=== PATIENT | male | born 1960 | race Caucasian/White ===

== ENCOUNTER 2017-06-12 00:20 | Inpatient (IN) | payer MEDICAID ==
[~2017-06-12] VITALS: Ht 182.9 cm; Wt 88.0 kg
[2017-06-12] VITALS (9 sets, daily range): BP systolic 144–195; BP diastolic 85–102
[~2017-06-12 00:20] MED LIST: ASPIRIN 325MG325 MG PO; BENTYL10 M1 PO; CARVEDILOL 25MG25 MG PO; CIPRO 500MG TA500 MG PO; DIFLUCAN200 MG PO; ETODOLAC400 MG PO; FLAGYL 500MG.500 MG PO; FLAGYL500 M1 PO; FUROSEMIDE40 MG PO; GABAPENTIN300 MG PO; GLIMEPIRIDE 2MG2 MG PO; IMODIUM MULTI-S1 TAB PO; LISINOPRIL 20MG20 MG PO; NICOTINE T21 MG/24 H TD; NITROGLYCERIN0.4 MG SL; NOMEDS; NOMEDS *; NOMEDS XX; NORCO 325 MG-51 TAB PO; NORVASC 5MG. TAB5 MG PO; PERCOCET 325 MG1 TA3 PO; PHENERGAN 25MG.25 M1 PO; PREDNISONE 20MG20 MG PO; PREDNISONE20 MG PO; PRILOSEC20 MG PO; SPIRONOLACTONE25 MG NG; ZESTRIL20 MG NG; ZOFRAN 8MG TABLE8 MG PO; ZOFRAN ODT4 MG PO
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
[2017-06-12 02:18] LABS: HEMOGLOBIN 17.5 g/dL (14.1-18.0); LYMPH % 6.1 % (10-50)
[2017-06-12 03:42] LABS: NEUTROPHILS 93 % (42-76)
--- NOTE | 2017-06-12 07:29 | PHARMACY CLINIC NOTE ---
Patient Demographics Patient Demographics Admission date: 06/12/17 Date: 06/12/17 Time: 0728 Allergies Coded Allergies: codeine (Severe, [id number]/THROAT 09/03/16) Penicillins (Mild, 01/08/16) acetaminophen (From DARVOCET-N 100) (Mild, 01/06/16) morphine (Mild, 01/06/16) propoxyphene (From DARVOCET-N 100) (Mild, 01/06/16) HEIGHT- FT: 6 IN: 0.00 K.026 VTE General Information Labs: Laboratory Tests 06/12 0215 Hematology Hgb (14.1 - 18.0 g/dL) 17.5 Hct (42.0 - 52.0 %) 50.6 Plt Count (142 - 424 K/mm3) 249 Disclaimer The following section includes nursing documentation that has been pulled in for pharmacy review. Patient's VTE score: 2 Patient's VTE Risk: VERY LOW RISK Clinical trial participant? No VTE prophylaxis NQF [id number] VTE prophylaxis ordered? Yes Type of prophylaxis/treatment: DIAMOND at 0729
--- NOTE | 2017-06-12 07:29 | PHARMACY CLINIC NOTE ---
Patient Demographics Patient Demographics Admission date: 06/12/17 Date: 06/12/17 Time: 0728 Allergies Coded Allergies: codeine (Severe, [id number]/THROAT 09/03/16) Penicillins (Mild, 01/08/16) acetaminophen (From DARVOCET-N 100) (Mild, 01/06/16) morphine (Mild, 01/06/16) propoxyphene (From DARVOCET-N 100) (Mild, 01/06/16) HEIGHT- FT: 6 IN: 0.00 K.026 VTE General Information Labs: Laboratory Tests 06/12 0215 Hematology Hgb (14.1 - 18.0 g/dL) 17.5 Hct (42.0 - 52.0 %) 50.6 Plt Count (142 - 424 K/mm3) 249 Disclaimer The following section includes nursing documentation that has been pulled in for pharmacy review. Patient's VTE score: 2 Patient's VTE Risk: VERY LOW RISK Clinical trial participant? No VTE prophylaxis NQF [id number] VTE prophylaxis ordered? Yes Type of prophylaxis/treatment: DIAMOND at 0729
--- NOTE | 2017-06-12 08:14 | RADIOLOGY REPORT PS360 ---
CT ABD PELVIS W/O CONTRAST CLINICAL INDICATION: Nausea and vomiting with severe abdominal pain SEVERE ABD PAIN ORDERING PHYSICIAN: José Miguel Nevarez MD PATIENT AGE: 56 years COMPARISON: 09/20/2016 TECHNIQUE: Axial images obtained with sagittal and coronal reformats. PROCEDURE: Oral Contrast: None IV Contrast: None . FINDINGS: Chronic changes are present in the left lung base. There is mild thickening of the distal esophagus. Nonspecific. The liver, spleen, adrenal glands, and pancreas are unremarkable. No radio opaque gallstones. There are punctate nonobstructing bilateral renal calculi measuring up to 3 mm. No ureteral calculi or hydronephrosis. Bowel gas pattern is abnormal. There are fluid-filled loops of small bowel slightly distended. There is also fluid-filled cecum. Mild small bowel thickening noted. No evidence of appendicitis or diverticulitis. No free air. No transition point identified. No acute bony anomalies. IMPRESSION: 1. Mildly distended fluid-filled loops of small and large bowel with some mild bowel wall thickening suggesting enterocolitis/ileus. These findings are similar when compared to 09/20/2016. 2. Nonobstructing bilateral renal calculi.
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
[2017-06-13 03:57] VITALS: BP 158/84
[2017-06-13 07:28] LABS: LYMPH # 1.8 K/mm3 (0.7-4.5); LYMPH % 15.9 % (10-50)
[2017-06-13 08:00] VITALS: BP 164/85
[2017-06-13 08:05] LABS: HEMOGLOBIN 14.3 g/dL (14.1-18.0)
--- NOTE | 2017-06-13 08:38 | ACUTE CARE PROGRESS NOTE (QUA) ---
Progress Notes Subjective Date 06/13/17 Time 0745 Note Pt resting quietly in bed, reports he is feeling a little better. He is tolerating clear liquids without nausea or vomiting. He continues with some mild abdominal cramping and soreness. He is voiding normally and had one liquid BM overnight. Objective Findings Vital Signs Date Time Temp Pulse Resp B/P Pulse O2 O2 Flow FiO2 Ox Delivery Rate 06/13 0804 98.3 54 16 158/84 97 06/13 0357 98.3 54 16 158/84 97 ROOM AIR 06/12 2103 99.6 61 18 173/99 98 06/12 2026 18 06/12 1958 99.6 61 18 173/99 98 ROOM AIR 06/12 1554 97.9 67 16 144/85 99 ROOM AIR 06/12 1316 18 06/12 0921 98.9 58 18 158/98 100 Last VS-Temp:98.3 B/P:158/84 Pulse:54 Resp:16 SaO2:97 ROOM AIR Last weight lbs:194 oz:1 K.026 Method:Bed Scales Exam General appearance: alert, awake, no acute distress Cardiovascular: regular rate & rhythm, normal peripheral pulses Respiratory: good air movement with bibasilar wheeze ABD: non-distended, no rebound, soft, no guarding, no organomegaly, no palpable mass, bowel sounds present, mildly and diffusely ttp, moreso along midline Extremities: moves all, no peripheral edema, no calf tenderness, bilateral DIAMOND hose in place Neuro: alert, oriented, speech clear, no focal deficit Reviewed: medications, vital signs, lab results, nursing notes Assessment/Plan Problem List 1. Enterocolitis Status: Acute 2. Generalized abdominal pain Status: Acute 3. Nausea and vomiting Status: Acute 4. Hypokalemia Status: Acute 5. Dehydration Status: Acute 6. Hypertension Status: Chronic 7. Tobacco abuse Status: Chronic 8. COPD (chronic obstructive pulmonary disease) Status: Chronic Patient condition Improving Plan: continue current care This inpt stay is expected to cross 2 MNs from start of care Yes (ADILSON JEFFREY APRN) Assessment/Plan Problem List 1. Enterocolitis Status: Acute 2. Generalized abdominal pain Status: Acute 3. Nausea and vomiting Status: Acute 4. Hypokalemia Status: Acute 5. Dehydration Status: Acute 6. Hypertension Status: Chronic 7. Tobacco abuse Status: Chronic 8. COPD (chronic obstructive pulmonary disease) Status: Chronic Comments: Patient seen and agree with above note, advance to a full liquid diet. (José Miguel Nevarez MD) at 0837 at 0861
[2017-06-13 16:00] VITALS: BP 181/95
[2017-06-13 19:46] VITALS: BP 169/88
[2017-06-14 04:33] VITALS: BP 153/82
[2017-06-14 07:28] VITALS: BP 159/87
--- NOTE | 2017-06-14 08:31 | ACUTE CARE PROGRESS NOTE (QUA) ---
Progress Notes Subjective Date 06/14/17 Time 0829 Note Patient is feeling better, needing less pain medication, tolerating full liquid diet. Objective Findings Vital Signs Date Time Temp Pulse Resp B/P Pulse O2 O2 Flow FiO2 Ox Delivery Rate 06/14 0821 98.9 56 18 159/87 99 06/14 0728 98.9 56 18 159/87 99 ROOM AIR 06/14 0443 18 06/14 0433 98.5 53 18 153/82 100 ROOM AIR 06/13 1946 98.5 52 18 169/88 99 06/13 1946 98.5 52 18 169/88 99 ROOM AIR 06/13 1725 20 06/13 1600 98.5 50 20 181/95 98 ROOM AIR 06/13 1049 16 I&O Past 24 Hrs-ending at 0700 06/14 0700 Intake Total 4776 Output Total 1190 Balance 3586 Last VS-Temp:98.9 B/P:159/87 Pulse:56 Resp:18 SaO2:99 ROOM AIR Last weight lbs:194 oz:1 K.026 Method:Bed Scales Exam General appearance: alert, awake, no acute distress Cardiovascular: regular rate & rhythm Respiratory: clear to auscultation ABD: normal bowel sounds, soft, tenderness (minimal periumbilical) Assessment/Plan Problem List 1. Enterocolitis Status: Acute 2. Generalized abdominal pain Status: Acute 3. Nausea and vomiting Status: Acute 4. Hypokalemia Status: Acute 5. Dehydration Status: Acute 6. Hypertension Status: Chronic 7. Tobacco abuse Status: Chronic 8. COPD (chronic obstructive pulmonary disease) Status: Chronic This inpt stay is expected to cross 2 MNs from start of care Yes Comments: Advance to bland diet, saline lock IVF. at 0830
--- NOTE | 2017-06-14 14:09 | ACUTE CARE PROGRESS NOTE (QUA) ---
Progress Notes Subjective Date 06/14/17 Time 1407 Note Patient has done well with regular diet, pain has decreased, he wants to go home. Assessment/Plan Problem List 1. Enterocolitis Status: Acute 2. Generalized abdominal pain Status: Acute 3. Nausea and vomiting Status: Acute 4. Hypokalemia Status: Acute 5. Dehydration Status: Acute 6. Hypertension Status: Chronic 7. Tobacco abuse Status: Chronic 8. COPD (chronic obstructive pulmonary disease) Status: Chronic This inpt stay is expected to cross 2 MNs from start of care Yes Comments: Discharge home today, he will call for appt. with his assigned primary MD. at 1402
[2017-06-14] MEDS ORDERED: LISINOPRIL 20MG20 MG PO (14:10)
[2017-06-14] MEDS ORDERED: NORVASC 5MG. TAB5 MG PO (14:10)
[2017-06-14] MEDS ORDERED: METRONIDAZOLE500 M2 PO (14:11)
[2017-06-14] MEDS ORDERED: ZOFRAN 8MG TABLE8 MG PO (14:11)
[2017-06-14 14:40] VITALS: BP 159/87
--- NOTE | 2017-06-16 17:21 | DISCHARGE SUMMARY STANDARD ---
Discharge Summary (FCA2) Date of admission: 06/12/17 Date of discharge: 06/14/17 Problem List: 1. Enterocolitis 2. Generalized abdominal pain 3. Nausea and vomiting 4. Hypokalemia 5. Dehydration 6. Hypertension 7. Tobacco abuse 8. COPD (chronic obstructive pulmonary disease) History of present illness: Mr. Medina is a 56yo WM with a history of HTN, COPD, and recurring partial bowel obstructions who presented to the [facility] ED for evaluation after two days of abdominal pain and vomiting at home. He denied any loose stools or blood in his stool. He did have subjective fever with aches and chills, as well as decreased appetite. Upon arrival, his WBC was elevated, as well as his BUN and Creatinine. CT Abdomen/Pelvis showed enterocolitis. The case was discussed with Dr. Nevarez and he was admitted for IVF and antibiotics. This morning, he continues with lower abdominal pain and vomiting, which are somewhat controlled by prn dilaudid and zofran. He is voiding per urinal. He denies BM. Exam on admission: 1ST Vital Signs Result Date Time Pulse Ox 98 06/12 0023 B/P 180/90 06/12 0023 Temp 97.9 06/12 0023 Pulse 72 06/12 0023 Resp 24 06/12 0023 O2 Delivery ROOM AIR 06/12 0448 Exam: General appearance: no acute distress, arouses to voice Eyes: anicteric, PERRLA ENT: mucous membranes moist, pharynx normal, nares patent Neck: non-tender, supple, no thyromegaly or LAD Cardiovascular: regular rate & rhythm, normal peripheral pulses Respiratory: good air movement with fine crackles left base ABD: non-distended, soft, bowel sounds present, ttp throughout Extremities: moves all, no peripheral edema, warm, no calf tenderness Musculoskeletal: equal muscle strength, sensation intact Skin: dry, intact, warm 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 The AM after admission he continued with lower abdominal pain and vomiting, which were somewhat controlled by prn dilaudid and zofran. He was voiding per urinal. Pt did begin to feel better, was able to rest, and began to tolerated clear liquids. Labs also improved. By 06/14/17 patient was tolerating a regular diet and had minimal abdominal discomfort. He was discharged on this day Laboratory data this visit: 06/12/17 0703: Lactic Acid 2.4 H 06/12/17 021: Lactic Acid 2.6 H 06/12/17 0215: Creatine Kinase 74, CK-MB (CK-2) Rel Index 0.8, CK and CKMB Interp 0.6, Troponin I < 0.02, ESR 0 06/12/17 021: Sodium 140, Potassium 3.2 L, Chloride 102, Carbon Dioxide 25, BUN 19 H, Creatinine 1.5 H, Estimated Creat Clear 70, Estimated GFR (MDRD) 48, Glucose 168 H, Calcium 9.7, Total Bilirubin 1.4 H, AST 16, ALT 29, Alkaline Phosphatase 102, Total Protein 8.5 H, Albumin 4.8, Globulin 3.7 H, Albumin/ Globulin Ratio 1.3, Amylase 32, Lipase 121, WBC 15.7 H, RBC 5.69, Hgb 17.5, Hct 50.6, MCV 88.9, RDW 13.3, Plt Count 249, MPV 7.5, Gran % 89.8 H, Gran # 14.1 H , Total Counted 100, Lymphocytes % 6.1 L, Monocytes % 3.4, Eosinophils % 0.6, Basophils % 0.2, Neutrophils 93 H, Lymphocytes (Manual) 7 L, Lymphocytes # 1.0 , Monocytes # 0.5, Eosinophils # 0.1, Basophils # 0.0, Platelet Estimate NORMAL, Anisocytosis 1+, PUBS MCHC 34.6, MCH 30.7 Imagin06/12/17 CT of abdomen/pelvis IMPRESSION: 1. Mildly distended fluid-filled loops of small and large bowel with some mild bowel wall thickening suggesting enterocolitis/ileus. These findings are similar when compared to 09/20/2016. 2. Nonobstructing bilateral renal calculi. Discharge medications: Continue taking these medications: LISINOPRIL (Lisinopril) 20 MG TAB 20 MILLIGRAM ORAL DAILY Qty = 30 This prescription has been renewed Amlodipine Besylate (Norvasc) 5 MG TAB 5 MILLIGRAM ORAL DAILY Qty = 30 This prescription has been renewed Start taking the following new medications: Metronidazole (Metronidazole) 500 MG TABLET 500 MILLIGRAM ORAL THREE TIMES A DAY Qty = 21 No Refills Ondansetron Hcl (Zofran 8MG Tab) 8 MG TABLET 8 MILLIGRAM ORAL EVERY 8 HOURS NEEDED as needed for N/V Qty = 20 No Refills Disposition: Patient was dischared to home in stable and satisfactory condition. Meds as per reconciliation sheet. Follow up: 2 WEEKS with PCP Activity: Cont Current activity Diet: Continue same diet Discharge to: HOME Agency needed? N at 1724
--- OUTSIDE RECORDS SUMMARY | 2017-07-08 04:48 | External Medical Summary Rpt ---
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 Name Role Phone CHRISTINA RODGERSSHARIFSHELLI Unavailable Unavailable [facility]LE [facility], Unavailable [facility]available [facility], Unavailable Unavailable [facility] Pau GUTIERREZ MD Unavailable Unavailable [facility], C JANNETTE GUTIERREZ MD [facility] ANJALI JONATHAN, Unavailable Unavailable ANJALI JONATHAN [facility], Unavailable Unavailable [facility], Unavailable Unavailable [facility] [place], [facility] [place] [facility] Unavailable Unavailable [facility], [facility] [place] JOSE RAMON, [place] Unavailable Unavailable JSOE RAMON CHIARA QAMAR, CHIARA Unavailable Unavailable QAMAR ZULETA JOSE RAMON, ZULETA JOSE RAMON Unavailable Unavailable JR MARLY MENDOZA, Unavailable Unavailable JR MARLY MENDOZA [facility] Unavailable Unavailable INC, [facility] Unavailable Unavailable Hospital, [facility] FERNÁNDEZ JOSE RAMON, Unavailable Unavailable FERNÁNDEZ JOSE RAMON FERNÁNDEZ JOSE RAMON, Unavailable Unavailable FERNÁNDEZ JOSE RAMON [facility] Unavailable Unavailable [facility], [facility], Unavailable Unavailable [facility], Unavailable Unavailable [facility], Unavailable Unavailable RENETTA R Anil [facility], Unavailable Unavailable [facility], [facility] SHARPE MASHA, SHARPE MASHA Unavailable Unavailable SHARPE MASHA, SHARPE MASHA Unavailable Unavailable [facility] Unavailable Unavailable [id number] # [id number], [facility] [id number] # [id number] [facility] ALEKSANDR, Unavailable Unavailable [facility] ALEKSANDR [facility] ALEKS[facility], Unavailable Unavailable [facility] ALEKSANDR SCIFRES ANG, SCIFRES Unavailable Unavailable ANG SCIFRES ANG, SCIFRES Unavailable Unavailable ANG SOTINGEANU, Unavailable Unavailable [facility], [facility] TROOST NEI, TROOST Unavailable Unavailable NEI [facility] # Unavailable Unavailable [id number], [facility] # [id number] Purpose Continuity of Care Document - 05-29-2011 through 2016 Problems Code Diagnosis DOS Provider Status I10 ESSENTIAL 09-20-2016 [facility] HYPERTENSIO INC N J449 CHRONIC 09-20-2016 [facility] PULMONARY INC DISEASE UNS K219 GASTRO-ESOP 09-20-2016 [facility] DISEASE INC WITHOUT ESOPHAGITIS K5289 OTH SPEC 09-20-2016 [facility] GASTROENTER ITIS & COLITIS K529 NONINFECTIV 09-20-2016 [facility] GASTROENTER INC ITIS & COLITIS UNS R112 NAUSEA WITH 09-20-2016 [facility] Z720 TOBACCO USE 09-20-2016 [facility] 67708 INTESTINAL 06-06-2015 [facility] DUE CLOSTRIDIUM DIFFICILE 4019 UNSPECIFIED 06-06-2015 [facility] ESSENTIAL [facility] HYPERTENSIO N 66259 OTHER 06-06-2015 [facility] TENOSYNOVIT [facility] IS OF HAND AND WRIST 25178 OTHER 05-31-2015 [place] DISEASES OF MEDICAL LUNG NOT IMAGING ASS ELSEWHERE CLASSIFIED 78442 OTHER 05-31-2015 [place] SPECIFIED MEDICAL DISORDER OF IMAGING ASS INTESTINES 53786 ABDOMINAL 05-31-2015 [place] PAIN, MEDICAL UNSPECIFIED IMAGING ASS SITE 10842 NAUSEA WITH 05-28-2015 [place] VOMITING [facility]ICAL [facility]ING [facility] 7873 FLATULENCE 05-28-2015 [place] ERUCTATION MEDICAL AND GAS IMAGING ASS PAIN V5882 ENCOUNTER 05-28-2015 [place] FITTING&ADJ MEDICAL IMAGING ASS NON-VASCULA R CATHETER NEC 99883 LEUKOCYTOSI 05-27-2015 [facility] S [facility], UNSPECIFIED PLLC 5920 CALCULUS OF 05-27-2015 [facility] [facility] 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 MEDIA 14702 UNSPECIFIED 08-11-2014 [facility] OTITIS PHYS EXTERNA 4139 OTHER AND 08-11-2014 [facility] ANGINA INC PECTORIS V148 PERSONAL 08-11-2014 [facility] HISTORY [facility] ALLERGY OTH INC SPEC MEDICINAL AGTS 7840 HEADACHE 07-11-2014 [facility] 5559 REGIONAL 09-09-2011 [facility] ENTERITIS ALEKSANDR OF UNSPECIFIED SITE 81296 NAUSEA 09-09-2011 [place] [facility]ONE [facility] 88970 ABDOMINAL 09-09-2011 [facility] PAIN, ALEKSANDR GENERALIZED 7934 NONSPECIFIC 09-09-2011 SHARPE MASHA ABN FINDING RAD & OTH EXAM GI TRACT 7936 NONSPEC ABN 09-09-2011 [place] FINDNG RAD MEDICAL & OTH EXAM IMAGING ASS ABDOMINAL AREA 5589 OTH&UNSPEC 07-20-2011 [facility]INFECTIO [facility] US INC GASTROENTER ITIS&COLITI S 02236 OTHER 07-20-2011 [facility] DISORDERS INC OF INTESTINE 5609 UNSPECIFIED 07-19-2011 [place] INTESTINAL [facility]ICAL [facility] OBSTRUCTION 5601 PARALYTIC 07-12-2011 [facility] ILEUS [facility] 19796 DENTAL 06-05-2011 [facility] CARIES JOSE RAMON EXTENDING INTO PULP 5258 OTHER SPEC 06-05-2011 F[facility] DISORDERS JOSE RAMON TEETH&SUPPO RTING STRUCTURES 560.9 Small bowel [facility] D72.829 ELEVATED WHITE BLOOD CELL COUNT, UNSPECIFIED H60.92 UNSPECIFIED OTITIS EXTERNA, LEFT EAR H66.90 OTITIS MEDIA, UNSPECIFIED , UNSPECIFIED EAR K52.9 NONINFECTIV E GASTROENTER ITIS AND COLITIS, UNSPECIFIED R10.9 UNSPECIFIED ABDOMINAL PAIN R11.2 NAUSEA WITH VOMITING, UNSPECIFIED Allergies, Adverse Reactions, Alerts Type Drug Allergy Adverse Reaction to Substance Substance Reaction Severity Penicillin Unknown Unknown Amoxicillin Unknown Unknown Codeine Unknown Unknown Morphine Unknown Unknown Propoxyphene Unknown Unknown Penicillin V Unknown Unknown Acetaminophen Unknown Unknown Hydrocodone Unknown Unknown Medications Na ND Rx Da Fi Fi Am Da Di Ph RX Ph St me C No te ll ll ou ys ag ar # ys at rm s nt no ma ic us Or Da si cy ia de te s n re d LI 68 08 30 30 00 CL Ac SI 18 -0 -0 .0 00 IN ti NO 00 7- - 00 00 IC ve OR 98 20 20 41 IL 10 17 17 54 PH 3 56 AR 20 MA CY MG TA BL ET AM 67 08 09 30 30 00 CL Ac LO 87 -0 -0 .0 00 IN ti DI 70 7- - 00 00 IC ve PI 19 20 20 41 NE 81 17 17 54 PH 0 55 AR BE MA SY CY LA TE 5 MG TA B LI 68 05 30 30 00 CL Ac SI 18 -3 -3 .0 00 IN ti NO 00 0- 0- 00 00 IC ve OR 98 20 20 41 IL 10 17 17 54 PH 3 56 AR 20 MA CY MG TA BL ET AM 67 05 30 30 00 CL Ac LO 87 -3 -3 .0 00 IN ti DI 70 0- 0- 00 00 IC ve PI 19 20 20 41 NE 81 17 17 54 PH 0 55 AR BE MA SY CY LA TE 5 MG TA B AM 67 04 05 30 30 00 CL Ac LO 87 -1 -0 .0 00 IN ti DI 70 1- 5- 00 00 IC ve PI 19 20 20 41 NE 81 17 17 54 PH 0 55 AR BE MA SY CY LA TE 5 MG TA B LI 68 04 05 30 30 00 CL Ac SI 18 -1 -0 .0 00 IN ti NO 00 1- 5- 00 00 IC ve OR 51 20 20 41 IL 50 17 17 54 PH 3 56 AR 20 MA CY MG TA BL ET AM 67 02 03 30 30 00 CL Ac LO 87 -2 -1 .0 00 IN ti DI 70 0- 7- 00 00 IC ve PI 19 20 20 41 NE 81 17 17 54 PH 0 55 AR BE MA SY CY LA TE 5 MG TA B LI 68 02 03 30 30 00 CL Ac SI 18 -2 -1 .0 00 IN ti NO 00 0- 7- 00 00 IC ve OR 51 20 20 41 IL 50 17 17 54 PH 3 56 AR 20 MA CY MG TA BL ET AM 67 01 02 30 30 00 CL Ac LO 87 -1 -1 .0 00 IN ti DI 70 1- 0- 00 00 IC ve PI 19 20 20 41 NE 81 17 17 54 PH 0 55 AR BE MA SY CY LA TE 5 MG TA B ME 00 01 02 20 10 00 CL Ac TR 59 -1 -1 .0 00 IN ti ON 15 3- 0- 00 00 IC ve ID 21 20 20 41 AZ 50 17 17 72 PH OL 5 38 AR E MA 50 CY 0 MG TA BL ET LI 68 01 02 30 30 00 CL Ac SI 18 -1 -1 .0 00 IN ti NO 00 1- 0- 00 00 IC ve OR 51 20 20 41 IL 50 17 17 54 PH 3 56 AR 20 MA CY MG TA BL ET ET 00 01 02 20 10 00 CL Ac OD 18 -1 -1 .0 00 IN ti OL 50 3- 0- 00 00 IC ve AC 67 20 20 41 50 17 17 72 PH 40 1 40 AR 0 MA MG CY TA BL ET ON 00 01 02 20 5 00 CL Ac DA 78 -1 -1 .0 00 IN ti NS 15 3- 0- 00 00 IC ve ET 23 20 20 41 RO 86 17 17 72 PH N 4 41 AR OD MA T CY 4 MG TA BL ET CI 16 01 02 20 10 00 CL Ac OR 57 -1 -1 .0 00 IN ti OF 10 3- 0- 00 00 IC ve LO 41 20 20 41 XA 21 17 17 72 PH CI 0 39 AR N MA HC CY L 50 0 MG TA B LI 68 12 01 30 30 00 CL Ac SI 18 -0 -2 .0 00 IN ti NO 00 7- 0- 00 00 IC ve OR 51 20 20 41 IL 50 16 17 54 PH 3 56 AR 20 MA CY MG TA BL ET AM 67 12 01 30 30 00 CL Ac LO 87 -0 -2 .0 00 IN ti DI 70 7- 0- 00 00 IC ve PI 19 20 20 41 NE 81 16 17 54 PH 0 55 AR BE MA SY CY LA TE 5 MG TA B ME 59 03 0 No TH 74 -0 YL 60 3- Lo OR 00 20 ng ED 10 13 er NI 6 SO Ac LO ti NE ve 4 MG TA BL ET ME 59 03 0 No TH 74 -0 YL 60 2- Lo OR 00 20 ng ED 10 13 er NI 6 SO Ac LO ti NE ve 4 MG TA BL ET BU 55 03 1 No TO 39 -0 RP 00 2- Lo WELCH 18 20 ng NO 40 13 er L 1 2 Ac MG ti /M ve L AL SO 00 03 0 No DI 40 -0 UM 97 1- Lo 98 20 ng CH 30 13 er LO 9 RI Ac DE ti ve 0. 9% SO LORI TI ON Sa 63 03 2 No li 80 -0 ne 70 1- Lo 10 20 ng Fl 07 13 er us 5 h Ac 10 ti ML ve Sy ri ng e OR 00 03 2 No OM 64 -0 ET 11 1- Lo WELCH 49 20 ng ZI 53 13 er NE 5 Ac 25 ti ve MG /M L AM PU L OR 68 09 09 0 12 2 WA 72 HE Ac OM 38 -1 -1 .0 L- 70 ND ti ET 20 2- 2- 00 MA 73 ER ve WELCH 04 20 20 RT 9 SO ZI 10 11 11 N NE 1 PH RO AR BE 25 MA RT CY W MG # TA 10 BL 05 ET 71 ME 00 09 09 21 6 RI 89 HE Ac TH 60 -0 -0 .0 TE 80 ND ti YL 34 7- 7- 00 34 ER ve OR 59 20 20 AI SO ED 31 11 11 D N NI 5 PH RO SO AR BE LO MA RT NE CY W 4 03 MG 93 8 DO # SE 03 PK 93 OX 53 09 09 0 12 2 WA 22 HE Ac YC 74 -0 -0 .0 L- 28 ND ti OD 60 6- 6- 00 MA 12 ER ve ON 20 20 20 RT 5 SO E- 30 11 11 N AC 1 PH RO ET AR BE AM MA RT IN CY W OP # HE N 10 5- 05 32 71 5 TR 49 08 08 0 [address] Ac AM 88 -3 -[address] 90 EP ti AD 40 1 1- 00 SI 43 HE ve OL 94 20 20 DE NS -A 60 11 11 CE 5 PH KE TA AR NM MA N NO CY C PH N OF 37 .5 CY -3 NT 25 HI AN A CL 63 08 08 0 [address] Ac IN 30 -3 -[address] 90 EP ti DA 40 1- - 00 SI 45 HE ve MY 69 20 20 DE NS CI 30 11 11 N 1 PH KE HC AR L MA N 30 CY C 0 MG OF CA CY PS NT UL HI E AN A Vital Signs 11-29-2012 19:41 Name Value Interpretat Reference Comment ion Range Body 98.5 [degF] Temperature BP 76 mm[Hg] Diastolic BP Systolic 140 mm[Hg] Heart 56 /min Rate/Pulse Respiratory 18 /min Rate 11-29-2012 16:00 Name Value Interpretat Reference Comment ion Range O2% 97 % 11-28-2012 00:10 Name Value Interpretat Reference Comment ion Range Height 180.34 cm Weight 85.758 kg Measured 11-27-2012 20:33 Name Value Interpretat Reference Comment ion Range Body 98.8 [degF] Temperature BP 107 mm[Hg] Diastolic BP Systolic 145 mm[Hg] Heart 82 /min Rate/Pulse O2% 97 % Respiratory 20 /min Rate Weight 0 [oz_av] Measured Results Labs Lab Lab Date Result Refere Interp Status Commen Order Detail nces retati t Range on Differential panel, method unspecified - (06-12-2017 02:15) Anisocy 1+ complet tosis 017 ed [Presen 02:15 ce] in Blood LYMPH 7 % 10% - Low complet 017 50% ed 02:15 Platele NORMAL complet ts 017 ed [Presen 02:15 ce] in Blood by Light microsc opy BASIC METABOLIC PANEL (11-28-2012 06:28) Glucose 94 74-106 complet 013 mg/dL ed Bld-mCn 06:28 c BUN 19 7-18 complet Bld-mCn 013 mg/dL ed c 06:28 Creat 1.0 0.8-1.3 complet SerPl-m 013 mg/dL ed Cnc 06:28 ESTIMAT 104 50-200 complet ED 013 ML/MIN ed CREATIN 06:28 INE CLEARAN CE GFR 78 Greater complet (ESTIMA 013 ML/MIN than ed DIAMOND) 06:28 60 Sodium 139 136-145 complet SerPl-s 013 mmoL/L ed Cnc 06:28 Potassi 3.1 3.5-5.1 complet um 013 mmoL/L ed SerPl-s 06:28 Cnc Chlorid 100 98-107 complet e 013 mmoL/L ed SerPl-s 06:28 Cnc CO2 30 21.0-32 complet SerPl-s 013 mmoL/L .0 ed Cnc 06:28 Calcium 8.5 8.5-10. complet 013 mg/dL 1 ed SerPl-m 06:28 Cnc CBC with AUTO DIFF (11-28-2012 06:28) WBC # 03-02-2 6.3 4.8-10. complet Bld 013 K/MM3 8 ed Auto 06:28 RBC # 03-02-2 5.49 4.6-6.2 complet Bld 013 M/mm3 ed Auto 06:28 Hgb 03-02-2 16.6 14.1-18 complet Bld-mCn 013 g/dL .0 ed c 06:28 Hct Fr 02-2 48.7 % 42.0-52 complet Bld 013 .0 ed 06:28 MCV RBC -02-2 88.7 fl 82.2-97 complet 013 .8 ed 06:28 MCH RBC 02-2 30.2 pg 27-31.2 complet Qn 013 ed Auto 06:28 MEAN -02-2 34.0 31.8-35 complet CORPUSC 013 g/dl .4 ed ULAR 06:28 HGB CONC RDW RBC 11-28-2 13.5 % 11.5-17 complet Auto 013 .5 ed 06:28 Platele 11-28-2 262 142-424 complet t Bld 013 K/mm3 ed Ql 06:28 Manual MEAN 02-2 7.5 fl 7.4-10. complet PLATELE 013 4 ed T 06:28 VOLUME Granulo -02-2 61.3 % 37.0-80 complet cytes 013 .0 ed Fr Bld 06:28 Auto LYMPH % -02-2 26.0 % 10-50 complet 013 ed 06:28 Monocyt 03-02-2 10.7 % 1.7-9.3 complet es Fr 013 ed Bld 06:28 Auto Eosinop 03-02-2 1.6 % 0.1-12. complet hil Fr 013 0 ed Bld 06:28 Auto Basophi 03-02-2 0.4 % 0.1-2.0 complet ls Fr 013 ed Bld 06:28 Auto Granulo 03-02-2 3.9 1.3-8.0 complet cytes # 013 K/mm3 ed Bld 06:28 Auto Lymphoc 03-02-2 1.6 0.7-4.5 complet ytes Fr 013 K/mm3 ed Bld 06:28 Auto Monocyt 03-02-2 0.7 0.1-1.0 complet es # 013 K/mm3 ed Bld 06:28 Auto Eosinop 03-02-2 0.1 0.0-0.4 complet hil # 013 K/mm3 ed Bld 06:28 Auto Basophi 11-28- 0.0 0-0.2 complet ls # 013 K/MM3 ed Bld 06:28 Auto URINALYSIS/COMPLETE (11-28-2012 00:20) URINE YELLOW YELLOW complet COLOR 013 ed 00:20 URINE CLEAR CLEAR complet APPEARA 013 ed NCE 00:20 URINE NEGATIV NEG complet GLUCOSE 013 E ed - 00:20 DIPSTIC K URINE NEGATIV NEG complet BILIRUB 013 E ed IN - 00:20 DIPSTIC K URINE NEGATIV NEG complet KETONE 013 E mg/dL ed 00:20 URINE 1.015 1.005-1 complet SPECIFI 013 UNK .030 ed C 00:20 GRAVITY URINE NEGATIV NEG complet BLOOD 013 E ed 00:20 URINE 6.0 UNK 5.0-8.5 complet PH 013 ed 00:20 URINE NEGATIV NEG complet PROTEIN 013 E mg/dL ed - 00:20 DIPSTIC K URINE 0.2 NEG complet UROBILI 013 E.U./dL ed NOGEN - 00:20 DIPSTIC K URINE NEGATIV NEG complet NITRATE 013 E ed - 00:20 DIPSTIC K URINE NEGATIV NEG complet LEUK 013 E ed ESTERAS 00:20 E URINE 3-5 O complet WBC 013 wbc/hpf ed 00:20 COMPREHENSIVE METABOLIC PANEL (11-27-2012 21:05) Glucose 120 74-106 complet 013 mg/dL ed Bld-mCn 21:05 c BUN 22 7-18 complet Bld-mCn 013 mg/dL ed c 21:05 Creat 1.0 0.8-1.3 complet SerPl-m 013 mg/dL ed Cnc 21:05 ESTIMAT 121 50-200 complet ED 013 ML/MIN ed CREATIN 21:05 INE CLEARAN CE GFR 78 Greater complet (ESTIMA 013 ML/MIN than ed DIAMOND) 21:05 60 Sodium 134 136-145 complet SerPl-s 013 mmoL/L ed Cnc 21:05 Potassi 3.2 3.5-5.1 complet um 013 mmoL/L ed SerPl-s 21:05 Cnc Chlorid 96 98-107 complet e 013 mmoL/L ed SerPl-s 21:05 Cnc CO2 30 21.0-32 complet SerPl-s 013 mmoL/L .0 ed Cnc 21:05 Calcium 9.0 8.5-10. complet 013 mg/dL 1 ed SerPl-m 21:05 Cnc Prot 7.7 6.4-8.2 complet SerPl-m 013 gm/dL ed Cnc 21:05 Albumin 4.0 3.4-5.0 complet 013 gm/dL ed SerPl-m 21:05 Cnc Globuli 3.7 1.3-3.2 complet n 013 gm/dL ed Ser-mCn 21:05 c Albumin 1.1 UNK 1.1-1.8 complet /Glob 013 ed SerPl-m 21:05 Rto Bilirub 1.8 0.2-1.0 complet 013 mg/dL ed SerPl-m 21:05 Cnc AST 18 U/L 15-37 complet SerPl-c 013 ed Cnc 21:05 ALT 44 U/L 30-65 complet SerPl-c 013 ed Cnc 21:05 ALP 87 U/L 50-136 complet SerPl-c 013 ed Cnc 21:05 Amylase SerPl-cCnc (11-27-2012 21:05) Amylase 23 U/L 25-115 complet 013 ed SerPl-c 21:05 Cnc LIPASE (11-27-2012 21:05) LIPASE 102 U/L 73-393 complet 013 ed 21:05 CBC with AUTO DIFF (11-27-2012 21:05) WBC # 11-27-2 6.5 4.8-10. complet Bld 013 K/MM3 8 ed Auto 21:05 RBC # 03-2 5.74 4.6-6.2 complet Bld 013 M/mm3 ed Auto 21:05 Hgb 17.4 14.1-18 complet Bld-mCn 013 g/dL .0 ed c 21:05 Hct Fr 50.7 % 42.0-52 complet Bld 013 .0 ed 21:05 MCV RBC 88.3 fl 82.2-97 complet 013 .8 ed 21:05 MCH RBC 30.4 pg 27-31.2 complet Qn 013 ed Auto 21:05 MEAN 34.4 31.8-35 complet CORPUSC 013 g/dl .4 ed ULAR 21:05 HGB CONC RDW RBC 13.5 % 11.5-17 complet Auto 013 .5 ed 21:05 Platele 297 142-424 complet t Bld 013 K/mm3 ed Ql 21:05 Manual MEAN 7.4 fl 7.4-10. complet PLATELE 013 4 ed T 21:05 VOLUME Granulo 11-27-2 68.4 % 37.0-80 complet cytes 013 .0 ed Fr Bld 21:05 Auto LYMPH % 11-27-2 18.9 % 10-50 complet 013 ed 21:05 Monocyt 11-27-2 11.9 % 1.7-9.3 complet es Fr 013 ed Bld 21:05 Auto Eosinop --2 0.7 % 0.1-12. complet hil Fr 013 0 ed Bld 21:05 Auto Basophi 11-27-2 0.1 % 0.1-2.0 complet ls Fr 013 ed Bld 21:05 Auto Granulo --2 4.4 1.3-8.0 complet cytes # 013 K/mm3 ed Bld 21:05 Auto Lymphoc --2 1.2 0.7-4.5 complet ytes Fr 013 K/mm3 ed Bld 21:05 Auto Monocyt 11-27-2 0.8 0.1-1.0 complet es # 013 K/mm3 ed Bld 21:05 Auto Eosinop --2 0.0 0.0-0.4 complet hil # 013 K/mm3 ed Bld 21:05 Auto Basophi 11-27-2 0.0 0-0.2 complet ls # 013 K/MM3 ed Bld 21:05 Auto Procedures [place] [address] [facility] THERAPY INC INC PROPHYLAX IS/[place] [address] [facility] THERAPY/P INC INC ROPHYLAXI S /DX 1ST TO 1 HR THERAPEUT 30703 [facility] IC 6 [facility] INJECTION [place] [address] [facility] THER INC INC PROPH ADDL SEQUENTIA L [place] [address] [place] [address] [facility] AMYLASE [facility] INC INC COMPREHEN 08310 [facility] SIVE 6 [facility] METABOLIC INC INC PANEL BLOOD 10774 [facility] COUNT 6 [facility] COMPLETE INC INC AUTO&AUTO DIFRNTL WBC URNLS DIP 22586 [facility] STICK/TAB INC INC LET REAGENT AUTO MICROSCOP Y CULTURE 33724 [facility] BACTERIAL [facility] INC [place] [address] [facility] ABDOMEN & 6 [facility] PELVIS INC INC W/[place] [address] [facility] LIPASE 6 [facility] INC INC DRUG TST G0477 [facility] PRESUMP;C 6 [facility] PBL BEING INC INC READ DC OPT OBV ONLY RADEX ABD 60875 [place] ANJALI COMPL 5 MEDICAL JONATHAN AQT ABD IMAGING W/S/E/D ASS VIEWS 1 VIEW RADEX ABD 35862 [facility] COMPL 5 MEDICAL [facility] AQT ABD IMAGING W/S/E/D ASS VIEWS 1 VIEW RADIOLOGI 16339 [facility] C 5 [facility]ICAL [facility] EXAMINATI IMAGING [place] [address] [place] [facility] ABDOMEN & 5 [facility] PELVIS IMAGING W/O ASS CONTRAST MATERIAL POSTERIOR V2632 [facility] CHAMBER 5 [facility] INTRAOCUL INC INC AR LENS CATARACT 68284 [facility] REM[facility]AL 5 [place] INSERTION OF LENS OPH BMTRY 97278 [facility] US 5 [place] ECHOGRAPY A-SCAN IO LENS PWR BOBBY OPHTH 37898 SCIF[facility] SCIFRES MEDICAL 5 ANG ANG XM&EVAL COMPRE NEW PT 1/> VST THERAPEUT 81184 [facility] IC 4 [facility] PROPHYLAC TIC/DX INJECTION SUBQ/IM INJECTION J1885 [facility] [address] [place] [address] KETOROLAC TROMETHAM INE PER 15 MG INJECTION J2550 MAYE MENDOZA, [address] [place] [address] MARLY PROMETHAZ INE HCL UP TO 50 MG THERAPEUT 07914 [facility] IC 4 [facility] PROPHYLAC INC INC TIC/DX INJECTION SUBQ/IM UNCLASSIF J3490 [facility] IED DRUGS 4 [facility] 10441 MATT GUTIERREZ DISCHARGE 1 ALEKSANDR ALEKSANDR DAY MANAGEMEN T 30 MIN/< SBSQ 51628 [facility] 1 ALEKSANDR ALEKSANDR CARE/DAY 15 MINUTES INITIAL 72087 [facility] 1 ALEKSANDR ALEKSANDR CARE/DAY 70 MINUTES RADEX ABD 25351 [facility] COMPL 1 MEDICAL JONATHAN AQT ABD IMAGING W/S/E/D ASS VIEWS 1 VIEW CH OBSERVATI 62060 C JANNETTE GUTIERREZ ON CARE 1 MATT BRANDON DISCHARGE PSC MANAGEMEN T INITIAL 29028 C JANNETTE GUTIERREZ OBSERVATI 1 MATT BRANDON ON PSC CARE/DAY 30 MINUTES INITIAL 62408 C JANNETTE GUTIERREZ OBSERVATI 1 MATT BRANDON ON PSC CARE/DAY 50 MINUTES RADEX ABD 05696 [facility] 1 MEDICAL JONATHAN AQT ABD IMAGING W/S/E/D ASS VIEWS 1 VIEW CH RADEX ABD 21912 [place] ANJAL[facility] COMPL 1 MEDICAL JONATHAN AQT ABD IMAGING W/S/E/D ASS VIEWS 1 VIEW CH 3D 13450 [facility] ANJALI RENDERING 1 [facility] IMAGING W/INTERP& [place] [address] SACHA ALBA ABDOMEN & 1 MEDICAL [facility] PELVIS IMAGING W/CONTRAS ASS T MATERIAL ECG 26342 AFLREDO DONOVAN ROUTINE 1 [facility] W/LEAST P 12 L[facility] 03376 C [facility] 1 MATT CORRIGAN MANAGEMEN T 30 MIN/< SBSQ 42183 C [facility] 1 MATT SPENCER/DONOVAN PECK [facility] 15 MINUTES RADEX 41514 SAC[facility] ANJALI ABDOMEN 1 MEDICAL JONATHAN COMPL IMAGING W/DCBTS&/ ASS ERC VIEWS SBSQ 34205 C [facility] 1 MATT SPENCER/DAY MD MEENU PECK PSC 25 MINUTES INITIAL 56769 C [facility] 1 [facility] TJ/DAY PSC 70 MINUTES ALVEOLECT 39481 PRADEEP FERNÁNDEZ MOISÉS 1 JOSE RAMON JOSE RAMON W/CURTG OSTEITIS/ SEQUESTRE CTOMY DEEP D9220 PRADEEP FERNÁNDEZ SEDATION/ 1 JOSE RAMON JOSE RAMON GENERAL ANESTHESI A-1ST 30 MINUTES ALVEOLOPL 15007 PRADEEP FERNÁNDEZ ASTY EACH 1 JOSE RAMON JOSE RAMON QUADRANT SPECIFY ORTHOPANT 19353 PRADEEP FERNÁNDEZ OGRAM 1 JOSE RAMON JOSE RAMON Encounters Encounter Start End Date Code Location Performer Type Date EMERGENCY 08852 [facility] 6 6 [facility] T VISIT HIGH/URGE NT SEVERITY EMERGENCY 09120 KIAH GALLAGHER DEPT 6 6 PHYSICIAN U VISIT S, [facility] HIGH SEVERITY& THREAT [facility] - 6 6 [facility] OUTPATIEN INC T OFFICE 97168 FAMILY RENETTA OUTPATIEN 5 5 CARE R H T VISIT ASSOCIATE 15 S MINUTES EMERGENCY 62320 KIAH GUADARRAMA DEPT 5 5 PHYSICIAN QAMAR VISIT S, PLL HIGH SEVERITY& THREAT [facility] - 5 5 [facility] T OFFICE 36846 [facility] 5 5 [place] NEW 45 MINUTES EMERGENCY 56846 MAYE [place] 4 4 [facility] JOSE RAMON [facility] T VISIT MODERATE SEVERITY [facility] - 4 4 [facility] 53390 [facility] 4 4 FELIX QAMAR [facility] EMERGENC[facility] T VISIT PHYS MODERATE SEVERITY [facility] - 4 4 [facility] 4 4 [facility] T VISIT [facility]OW/MODER SEVERITY [facility] 4 [facility] 59325 [facility] 4 4 [facility]I [facility] T VISIT MODERATE SEVERITY EMERGENCY 59855 [facility] 4 4 [facility]PITAL [facility]I [facility] T VISIT MODERATE SEVERITY [facility] - 4 4 [facility] Inpatient MANISH Donovan (IN) 3 21:00 3 20:20 [facility] Brett OFFICE 45877 ANNEMARIE SHARPE MASHA CONSULTAT 1 1 ION NEW/ESTAB PATIENT 80 MIN [facility] - 1 1 [facility] - 1 1 [facility] EMERGENCY 72229 KATIE ALBRIGHT DEPT 1 1 EMERGENCY VISIT SERVICES HIGH SEVERITY& THREAT [facility] - 1 1 [facility] INPATIENT INC OFFICE 23838 PRADEEP FERNÁNDEZ OUTPATIEN 1 1 JOSE RAMON LOERA 10 MINUTES
--- OUTSIDE RECORDS SUMMARY | 2017-07-08 04:48 | External Medical Summary Rpt ---
Author Author , ALICE Organization ALICE Address Unknown Phone [email or web address] Care Team Providers Care Lease Broker Name Role Phone CHRISTINA RODGERSSHARIFSHELLI Unavailable Unavailable ELLE [facility], Unavailable Unavailable [facility], Unavailable Unavailable [facility] Pau GUTIERREZ MD Unavailable Unavailable [facility], C JANNETTE GUTIERREZ MD [facility] ANJALI JONATHAN, Unavailable Unavailable ANJALI JONATHAN [facility], Unavailable Unavailable [facility], Unavailable Unavailable [facility] [place], [facility] [place] [facility] Unavailable Un[facility], [facility] [place] JOSE RAMON, [place] Unavailable Unavailable JOSE RAMON CHIARA QAMAR, CHIARA Unavailable Unavailable QAMAR ZULETA JOSE RAMON, ZULETA JOSE RAMON Unavailable Unavailable JR MARLY MENDOZA, Unavailable Unavailable JR MARLY MENDOZA [facility] Unavailable Unavailable INC, [facility] Unavailable Unavailable Hospital, [facility] FERNÁNDEZ JOSE RAMON, Unavailable Unavailable FERNÁNDEZ JOSE RAMON FERNÁNDEZ JOSE RAMON, Unavailable Unavailable FERNÁNDEZ JOSE RAMON [facility] Unavailable Unavailable [facility], [facility] SHREYA SMITH [facility], Unavailable Unavailable SHELLIDCChantale SMITH [facility], Unavailable Unavailable [facility], Unavailable Unavailable RENETTA R Anil [facility], Unavailable Unavailable [facility], [facility] SHARPE MASHA, SHARPE MASHA Unavailable Unavailable SHARPE MASHA, SHARPE MASHA Unavailable Unavailable [facility] Unavailable Unavailable [id number] # [id number], [facility] [address] # [id number] [place] ALEKSANDR, Unavailable Unavailable [facility] ALEKSANDR [facility] ALEKSAN[facility], Unavailable Unavailable [facility] ALEKSANDR SCIFRES ANG, SCIFRES Unavailable Unavailable ANG SCIFRES ANG, SCIFRES Unavailable Unavailable ANG SOTINGEANU, Unavailable Unavailable [facility]OT[facility], [facility] TROOST NEI, TROOST Unavailable Unavailable NEI [facility] # Unavailable Unavailable [id number], [facility] # [id number] Purpose Continuity of Care Document - 05-29-2011 [...] & COLITIS UNS R112 NAUSEA WITH 09-20-2016 [facility] UNSPECIFIED [facility] Z720 TOBACCO USE 09-20-2016 [facility] 08895 INTESTINAL 06-06-2015 [facility] DUE CLOSTRIDIUM DIFFICILE 4019 UNSPECIFIED 06-06-2015 [facility]SSENTIAL [facility] HYPERTENSIO N 39752 OTHER 06-06-2015 [facility] TENOSYNOVIT [facility] IS OF HAND AND WRIST 62875 OTHER 05-31-2015 [facility] DISEASES OF MEDICAL LUNG NOT IMAGING ASS ELSEWHERE CLASSIFIED 46104 OTHER 05-31-2015 [facility] SPECIFIED [facility]ICAL DISORDER OF IMAGING ASS INTESTINES 75082 ABDOMINAL 05-31-2015 [facility] PAIN, MEDICAL UNSPECIFIED IMAGING ASS SITE 67230 NAUSEA WITH 05-28-2015 [facility] 7873 FLATULENCE 05-28-2015 [facility] ERUCTATION [facility] GAS [facility] PAIN V5882 ENCOUNTER 05-28-2015 [facility] FITTING&ADJ [facility]ICAL [facility]ING ASS NON-[place]UL[place] CATHE[place] 18992 LEUKOCYTOSI 05-27-2015 [facility], UNSPECIFIED PLLC 5920 CALCULUS OF 05-27-2015 [facility] 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 MEDIA 08160 UNSPECIFIED 08-11-2014 [facility] OTITIS PHYS EXTERNA 4139 OTHER AND 08-11-2014 [facility] UNSPECIFIED [facility] ANGINA INC PECTORIS V148 PERSONAL 08-11-2014 [facility] HISTORY [facility] ALLERGY OTH INC SPEC MEDICINAL AGTS 7840 HEADACHE 07-11-2014 [facility] 5559 REGIONAL 09-09-2011 [facility] ENTERITIS ALEKSANDR OF UNSPECIFIED SITE 64882 NAUSEA 09-09-2011 [facility] 39517 ABDOMINAL 09-09-2011 [facility] PAIN, ALEKSANDR GENERALIZED 7934 NONSPECIFIC 09-09-2011 SHARPE MASHA ABN FINDING RAD & OTH EXAM GI TRACT 7936 NONSPEC ABN 09-09-2011 [facility] FINDNG RAD MEDICAL & OTH EXAM IMAGING ASS ABDOMINAL AREA 5589 OTH&UNSPEC 07-20-2011 [facility] NONINFECTIO [facility] US INC GASTROENTER ITIS&COLITI S 14471 OTHER 07-20-2011 [facility] DISORDERS INC OF INTESTINE 5609 UNSPECIFIED 07-19-2011 [facility] OBSTRUCTION 5601 PARALYTIC 07-12-2011 [facility] ILEUS [facility] 28476 DENTAL 06-05-2011 FERN[facility] CARIES JOSE RAMON EXTENDING INTO PULP 5258 OTHER SPEC 06-05-2011 FERNÁNDEZ DISORDERS JOSE RAMON TEETH&SUPPO RTING STRUCTURES 560.9 Small bowel [facility] D72.829 ELEVATED WHITE BLOOD CELL COUNT, UNSPECIFIED [...] 00 7- - 00 00 IC ve MO 98 20 20 41 IL 10 17 [...] 00 0- 0- 00 00 IC ve MO 98 20 20 41 IL 10 17 [...] 00 1- 5- 00 00 IC ve MO 51 20 20 41 IL 50 17 [...] 00 0- 7- 00 00 IC ve MO 51 20 20 41 IL 50 17 [...] 00 1- 0- 00 00 IC ve MO 51 20 20 41 IL 50 17 [...] 01 02 20 10 00 CL Ac MO 57 -1 -1 .0 00 IN ti [...] 00 7- 0- 00 00 IC ve MO 51 20 20 41 IL 50 16 [...] TH 74 -0 YL 60 3- Lo MO 00 20 ng ED 10 13 er NI 6 SO Ac LO ti NE ve 4 MG TA BL ET ME 59 03 0 No TH 74 -0 YL 60 2- Lo MO 00 20 ng ED 10 13 er [...] ti ML ve Sy ri ng e MO 00 03 2 No OM 64 -0 ET 11 1- Lo WELCH 49 20 ng ZI 53 13 er NE 5 Ac 25 ti ve MG /M L AM PU L MO 68 09 09 0 12 2 WA [...] 34 7- 7- 00 34 ER ve MO 59 20 20 AI SO ED 31 [...] 11 CE 5 PH KE TA AR DC MA N NO CY C PH N [...] [place] [address] [facility]ION [facility] THERAPY [place] [address] [facility] THERAPY/P INC INC ROPHYLAXI S /DX 1ST TO 1 HR THERAPEUT 90922 [facility] IC 6 [facility] INJECTION [place] [address] [facility] THER INC INC PROPH ADDL SEQUENT[place] [address] [place] [address] [facility] AMYLASE 6 [facility] INC INC COMPREHEN 37621 [facility] SIVE 6 [facility] METABOLIC INC INC PANEL BLOOD 68209 [facility] COUNT 6 [facility] COMPLETE INC INC AUTO&AUTO DIFRNTL WBC URNLS DIP 06977 [facility] 6 [facility] STICK/TAB INC INC LET REAGENT AUTO MICROSCOP Y CULTURE 80669 [facility] BACTERIAL 6 [facility] INC [place] [address] [facility] ABDOMEN & 6 [facility] PELVIS INC INC W/[place] [address] [facility] LIPASE 6 [facility] INC INC DRUG TST G0477 [facility] PRESUMP;C 6 [facility] PBL BEING INC INC READ DC OPT OBV ONLY RADEX ABD 91522 [facility] AN[facility]ALI COMPL 5 MEDICAL JONATHAN AQT ABD IMAGING W/S/E/D ASS VIEWS 1 VIEW RADEX ABD 37414 [facility] COMPL 5 MEDICAL ELLE AQT ABD IMAGING W/S/E/D ASS VIEWS 1 VIEW RADIOLOGI 86128 [facility] C 5 MEDICAL [facility] EXAMINATI IMAGING [place] [address] [place] BE[place] ABDOMEN & 5 MEDICAL [facility] PELVIS IMAGING W/O ASS CONTRAST MATERIAL POSTERIOR V2632 [facility] CHAMBER 5 [facility] INTRAOCUL INC INC AR LENS CATARACT 54077 [facility] MADRID REMOVAL 5 [place] INSERTION OF LENS OPH BMTRY 59306 [facility] US 5 [place] ECHOGRAPY A-SCAN IO LENS PWR BOBBY OPHTH 62408 SCIFRES SCIFRES MEDICAL 5 ANG ANG XM&EVAL COMPRE NEW PT 1/> VST THERAPEUT 98745 [facility] IC 4 [facility] PROPHYLAC TIC/DX INJECTION SUBQ/IM INJECTION J1885 [facility] [address] [place] [address] KETOROLAC TROMETHAM INE PER 15 MG INJECTION J2550 MAYE MENDOZA, [address] [place] [address] MARLY PROMETHAZ INE HCL UP TO 50 MG THERAPEUT 12818 [facility] IC 4 [facility] PROPHYLAC INC INC TIC/DX INJECTION SUBQ/IM UNCLASSIF J3490 [facility] IED DRUGS 4 [facility] 23453 MATT GUTIERREZ DISCHARGE 1 ALEKSANDR ALEKSANDR DAY MANAGEMEN T 30 MIN/< SBSQ 01596 [facility] 1 ALEKSANDR ALEKSANDR CARE/DAY 15 MINUTES INITIAL 04946 [facility] 1 ALEKSANDR ALEKSANDR CARE/DAY 70 MINUTES RADEX ABD 67524 [facility] COMPL 1 MEDICAL JONATHAN AQT ABD IMAGING W/S/E/D ASS VIEWS 1 VIEW CH OBSERVATI 43572 C JANNETTE GUTIERREZ ON CARE 1 MATT BRANDON DISCHARGE PSC MANAGEMEN T INITIAL 33605 C JANNETTE GUTIERREZ OBSERVATI 1 MATT BRANDON ON PSC CARE/DAY 30 MINUTES INITIAL 87795 C JANNETTE GUTIERREZ OBSERVATI 1 MATT BRANDON ON PSC CARE/DAY 50 MINUTES RADEX ABD 98550 [facility] MEDICAL JONATHAN AQT ABD IMAGING W/S/E/D ASS VIEWS 1 VIEW CH RADEX ABD 78422 [place] AN[facility]AL[place] COMPL 1 MEDICAL JONATHAN AQT ABD IMAGING W/S/E/D ASS VIEWS 1 VIEW CH 3D 94671 SACHA ANJALI RENDERING 1 MEDICAL JONATHAN IMAGING W/INTERP& [place] [address] SACHA ALBA ABDOMEN & 1 MEDICAL JONATHAN PELVIS IMAGING W/CONTRAS ASS T MATERIAL ECG 27724 [facility] DONOVAN ROUTINE 1 [facility] W/LEAST P 12 LDS [facility] ONLY H[facility] 64176 C [facility] 1 MATT CORRIGAN MANAGEMEN T 30 MIN/< SBSQ 57175 C [facility] 1 MATT SPENCER/DONOVAN PECK [facility] 15 MINUTES RADEX 07243 SACHA ANJALI ABDOMEN 1 MEDICAL JONATHAN COMPL IMAGING W/DCBTS&/ ASS ERC VIEWS SBSQ 24480 C [facility] 1 MATT SPENCER/DAY MD MEENU PECK PSC 25 MINUTES INITIAL 06360 C [facility] 1 MATT [facility] TJ/DAY PSC 70 MINUTES ALVEOLECT 98929 PRADEEP FERNÁNDEZ MOISÉS 1 JOSE RAMON JOSE RAMON W/CURTG OSTEITIS/ SEQUESTRE CTOMY DEEP D9220 PR[facility] FERNÁNDEZ SEDATION/ 1 JOSE RAMON JOSE RAMON GENERAL ANESTHESI A-1ST 30 MINUTES ALVEOLOPL 89256 PRADEEP FERNÁNDEZ ASTY EACH 1 JOSE RAMON JOSE RAMON QUADRANT SPECIFY ORTHOPANT 33558 PRADEEP FERNÁNDEZ OGRAM 1 JOSE RAMON JOSE RAMON Encounters Encounter Start End Date Code Location Performer Type Date EMERGENCY 65396 [facility] 6 6 [facility] DEPARTMEN INC T VISIT HIGH/URGE NT SEVERITY EMERGENCY 95340 [facility] GALLAGHER DEPT 6 6 PHYSICIAN U VISIT S, [facility] HIGH SEVERITY& THREAT [facility] - 6 6 [facility] OUTPATIEN INC T OFFICE 81029 [facility] RENETTA OUTPATIEN 5 5 CARE R H T VISIT ASSOCIATE 15 S MINUTES EMERGENCY 61003 K[facility] GUADARRAMA DEPT 5 5 PHYSICIAN QAMAR VISIT S, PLL HIGH SEVERITY& THREAT [facility] 5 5 [facility] OUTPATIEN [facility] T OFFICE 65930 [facility] 5 5 [place] T NEW 45 MINUTES EMERGENCY 73250 MAYE PARIS 4 4 [facility] JOSE RAMON [facility] T VISIT MODERATE SEVERITY [facility]OSPITAL [facility] - 4 4 [facility] 785[facility] SATELL[facility] 4 4 FELIX QAMAR [facility] EMERGENCY T VISIT PHYS MODERATE SEVERITY [facility] - 4 4 [facility] 0[facility] 4 4 [facility] VISIT LOW/MODER SEVERITY [facility] 47327 [facility] 4 4 [facility]OSPITAL NEI [facility] T VISIT MODERATE SEVERITY EMERGENCY 55059 [facility] 4 4 [facility]PITAL NEI [facility] T VISIT MODERATE SEVERITY [facility]OSPITAL [facility] - 4 4 [facility] Inpatient MANISH Donovan (IN) 3 21:00 3 20:20 [facility] Brett OFFICE 81722 ANNEMARIE SHARPE MASHA CONSULTAT 1 1 ION NEW/ESTAB PATIENT 80 MIN [facility]OSPITAL [facility] - 1 1 [facility] - 1 1 [facility] INPATIENT [facility] EMERGENCY 81575 KATIE ALBRIGHT DEPT 1 1 EMERGENCY VISIT SERVICES HIGH SEVERITY& THREAT [facility] - 1 1 [facility] INPATIENT INC OFFICE 52239 PRADEEP FERNÁNDEZ OUTPATIEN 1 1 JOSE RAMON LOERA 10 MINUTES
--- OUTSIDE RECORDS SUMMARY | 2017-07-08 04:49 | External Medical Summary Rpt ---
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 Name Role Phone ANIBAL ALMEIDA, ANBIAL Unavailable Unavailable EL[facility] MADRID [facility], Unavailable Unavailable [facility], Unavailable Unavailable [facility] Pau GUTIERREZ MD Unavailable Unavailable [facility], C JANNETTE GUTIERREZ MD [facility] ANJALI, ANJALI Unavailable Unavailable ANJALI JONATHAN, Unavailable Unavailable ANJALI JONATHAN [facility], Unavailable Unavailable [facility] Unavailable Unavailable [facility] [place] [place], [facility] [place] [facility] Un[facility], [facility] [place] JOSE RAMON, [place] Unavailable Unavailable JOSE RAMON CHIARA QAMAR, CHIARA Unavailable Unavailable QAMAR ZULETA JOSE RAMON, ZULETA JOSE RAMON Unavailable Unavailable JR MARLY MENDOZA, Unavailable Unavailable JR MARLY MENDOZA [facility] Un[facility] Unavailable [facility], [facility] FERNÁNDEZ JOSE RAMON, Unavailable Unavailable FERNÁNDEZ JOSE RAMON FERNÁNDEZ JOSE RAMON, Unavailable Unavailable FERNÁNDEZ JOSE RAMON [facility] DA ANAYA, Unavailable Unavailable DA ANAYA [facility], Unavailable Unavailable [facility] Olinda Ma, Unavailable Unavailable [facility], [facility], [facility] SHARPE MASHA, SHARPE MASHA Unavailable Unavailable SHARPE MASHA, SHARPE MASHA Unavailable Unavailable [facility] Unavailable Unavailable [id number] # [id number], [facility] [id number] # [id number] [facility] ALEKSANDR, Unavailable Unavailable [facility] ALEKSAN[facility] A[facility], Unavailable Unavailable [facility] SCIFRES ANG, SCIFRES Unavailable Unavailable ANG SCIFRES ANG, SCIFRES Unavailable Unavailable ANG SOTINGEANU, Unavailable Unavailable [facility] # Unavailable Unavailable [id number], [facility] # [id number] Purpose Continuity of Care Document - 05-29-2011 [...] & COLITIS UNS R112 NAUSEA WITH 09-20-2016 [facility]PEC[facility] Z720 TOBACCO USE 09-20-2016 [facility] 71648 INTESTINAL 06-06-2015 [facility] DUE CLOSTRIDIUM DIFFICILE 4019 UNSPECIFIED 06-06-2015 [facility] HYPERT[place]SIO N 68901 OTHER 06-06-2015 [facility] TENOSYNOVIT [facility] IS OF HAND AND WRIST 93674 OTHER 05-31-2015 [place] DISEASES OF MEDICAL LUNG NOT IMAGING ASS ELSEWHERE CLASSIFIED 74864 OTHER 05-31-2015 [place] SPECIFIED [facility]ICAL DISORDER OF IMAGING ASS INTESTINES 41934 ABDOMINAL 05-31-2015 [place] PAIN, MEDICAL UNSPECIFIED IMAGING ASS SITE 38189 NAUSEA WITH 05-28-2015 [facility] 7873 FLATULENCE 05-28-2015 [facility] ERUCTATION [facility] PAIN V5882 ENCOUNTER 05-28-2015 [place] FITTING&ADJ [facility]ICAL [facility] [place] 45360 LEUKOCYTOSI 05-27-2015 [facility] UNSPECIFIED [facility] 5920 CALCULUS OF 05-27-2015 [facility] 5932 ACQUIRED 05-27-2015 [facility] CYST OF [facility]ICAL [facility]NEY [facility] 91865 DIARRHEA 05-27-2015 [facility] V154 PERS HX 03-29-2015 [facility] TRAUMA [facility]S [facility] 03274 NUCLEAR 01-10-2015 [facility] SCLEROSIS [facility] 3669 UNSPECIFIED 01-10-2015 [facility] 03845 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 3688 OTHER 12-06-2014 [facility] SPECIFIED [facility] VISUAL DISTURBANCE S 75921 DERMATOCHAL 12-06-2014 [facility] ASIS [facility] 3674 PRESBYOPIA 10-21-2014 SCIFRES ANG 3829 UNSPECIFIED 08-14-2014 [facility] MEDIA 50021 UNSPECIFIED 08-11-2014 [facility] OTITIS PHYS EXTERNA 4139 OTHER AND 08-11-2014 [facility]PEC[facility] ANGINA INC PECTORIS V148 PERSONAL 08-11-2014 [facility]ORY [facility] ALLERGY OTH INC SPEC MEDICINAL AGTS 7840 HEADACHE 07-11-2014 [facility] 5559 REGIONAL 09-09-2011 [facility] ENTERITIS ALEKSANDR OF UNSPECIFIED SITE 01284 NAUSEA 09-09-2011 [facility] 30834 ABDOMINAL 09-09-2011 [facility] PAIN, ALEKSANDR GENERALIZED 7934 NONSPECIFIC 09-09-2011 SHAR[facility] MASHA ABN FINDING RAD & OTH EXAM GI TRACT 7936 NONSPEC ABN 09-09-2011 [place] FINDNG RAD MEDICAL & OTH EXAM IMAGING ASS ABDOMINAL AREA 5589 OTH&UNSPEC 07-20-2011 [facility] NONINFECTIO [facility] US INC GASTROENTER ITIS&COLITI S 08066 OTHER 07-20-2011 [facility]CTIONAL [facility] DISORDERS INC OF INTESTINE 5609 UNSPECIFIED 07-19-2011 [facility] OBSTRUCTION 5601 PARALYTIC 07-12-2011 [facility]US [facility] 63011 DENTAL 06-05-2011 [facility] CARIES JOSE RAMON EXTENDING INTO PULP 5258 OTHER SPEC 06-05-2011 [facility] DISORDERS JOSE RAMON TEETH&SUPPO RTING STRUCTURES Medications Na ND Rx Da Fi Fi Am Da Di Ph RX Ph St me C No te ll ll ou ys ag ar # ys at rm s nt no ma ic us Or Da si cy ia de te s n re d LI 68 08 09 30 30 00 CL Ac SI 18 -0 -0 .0 00 IN ti NO 00 7- 1- 00 00 IC ve AZ 98 20 20 41 IL 10 17 17 54 PH 3 56 AR 20 MA CY MG TA BL ET AM 67 08 09 30 30 00 CL Ac LO 87 -0 -0 .0 00 IN ti DI 70 7- 1- 00 00 IC ve PI 19 20 20 41 NE 81 17 17 54 PH 0 55 AR BE MA SY CY LA TE 5 MG TA B LI 68 05 06 30 30 00 CL Ac SI 18 -3 -3 .0 00 IN ti NO 00 0- 0- 00 00 IC ve AZ 98 20 20 41 IL 10 17 17 54 PH 3 56 AR 20 MA CY MG TA BL ET AM 67 05 06 30 30 00 CL Ac LO 87 [...] 00 1- 5- 00 00 IC ve AZ 51 20 20 41 IL 50 17 [...] 00 0- 7- 00 00 IC ve AZ 51 20 20 41 IL 50 17 [...] 00 1- 0- 00 00 IC ve AZ 51 20 20 41 IL 50 17 [...] 01 02 20 10 00 CL Ac AZ 57 -1 -1 .0 00 IN ti [...] 00 7- 0- 00 00 IC ve AZ 51 20 20 41 IL 50 16 [...] CY LA TE 5 MG TA B AZ 68 09 09 0 12 2 WA [...] 34 7- 7- 00 34 ER ve AZ 59 20 20 AI SO ED 31 [...] .0 ST 90 EP ti AD 40 1- 1- 00 SI 43 HE ve OL 94 20 20 DE NS -A 60 11 11 CE 5 PH KE TA AR VA MA N NO CY C PH N OF 37 .5 CY -3 NT 25 HI AN A CL 63 08 08 [address] Ac IN 30 -3 -[address] 90 EP ti DA 40 1- 1- 00 SI 45 HE ve MY 69 20 20 DE NS CI 30 11 11 N 1 PH KE HC AR L MA N 30 CY C 0 MG OF CA CY PS NT UL HI E AN A Procedures [place] [address] [facility] THERAPY INC INC PROPHYLAX IS/[place] [address] [facility] THERAPY/P INC INC ROPHYLAXI S /DX 1ST TO 1 HR THERAPEUT 61049 [facility] IC 6 [facility] INJECTION [place] [address] [facility] THER INC INC PROPH ADDL SEQUENTIA L TO 1 HR COMPREHEN 16217 [facility] SIVE 6 [facility] [place] [address] [facility] AMYLASE 6 [facility] INC INC URNLS DIP 51407 [facility] 6 [facility] STICK/TAB INC INC LET REAGENT AUTO MICROSCOP Y BLOOD 40283 [facility] COUNT 6 [facility] COMPLETE INC INC AUTO&[place] [address] [facility] LIPASE 6 [facility] [place] [address] [facility] ABDOMEN & 6 MEDICAL PELVIS IMAGING W/O ASS CONTRAST MATERIAL DRUG TST G0477 [facility] PRESUMP;C 6 [facility] PBL BEING INC INC READ DC OPT OBV ONLY CULTURE 64351 [facility] BACTERIAL 6 [facility] INC INC QUANTTATI VE COLONY COUNT URINE RADEX ABD 12058 [facility] COMPL 5 MEDICAL JONATHAN AQT ABD IMAGING W/S/E/D ASS VIEWS 1 VIEW CH RADIOLOGI 63392 [facility] C 5 MEDICAL ELLE EXAMINATI IMAGING ON CHEST ASS SINGLE VIEW FRONTAL RADEX ABD 24471 [facility] COMPL 5 MEDICAL ELLE AQT ABD IMAGING W/S/E/D ASS [place] [address] [place] [address] [facility] ABDOMEN & 5 MEDICAL ELLE PELVIS IMAGING W/O ASS CONTRAST MATERIAL POSTERIOR V2632 [facility] CHAMBER 5 [facility] INTRAOCUL INC INC AR LENS CATARACT 17011 [facility] REMOVAL 5 [place] INSERTION OF LENS OPH BMTRY 81549 [facility] US 5 [place] ECHOGRAPY A-SCAN IO LENS PWR BOBBY OPHTH 01809 [facility] 5 ANG ANG XM&EVAL COMPRE NEW PT 1/> VST INJECTION J1885 [facility] [address] [place] [address] KETOROLAC TROMETHAM INE PER 15 MG THERAPEUT 37154 [facility] IC [address] [place] [address] PROPHYLAC TIC/DX INJECTION SUBQ/IM INJECTION J2550 MAYE MENDOZA, [address] [place] [address] PROMETHAZ INE HCL UP TO 50 MG THERAPEUT 95915 [facility] IC 4 [facility] PROPHYLAC INC INC TIC/DX INJECTION SUBQ/IM UNCLASSIF J3490 [facility] IED [facility] [address] [place] [address] [facility] DISCHARGE 1 ALEKSANDR ALEKSANDR DAY MANAGEMEN T 30 MIN/< SBSQ 79097 [facility] 1 ALEKSANDR ALEKSANDR CARE/DAY 15 MINUTES INITIAL 69115 [facility] 1 ALEKSANDR ALEKSANDR CARE/DAY 70 MINUTES RADEX ABD 48970 [facility] COMPL 1 MEDICAL JONATHAN AQT ABD IMAGING W/S/E/D ASS VIEWS 1 VIEW OBSERVATI 92356 C JANNETTE GUTIERREZ ON CARE 1 MATT BRANDON DISCHARGE [facility] MANAGEMEN T INITIAL 98853 C JANNETTE GUTIERREZ OBSERVATI 1 MATT BRANDON ON PSC CARE/DAY 30 MINUTES INITIAL 79317 C JANNETTE GUTIERREZ OBSERVATI 1 MATT BLEDSOE MD [facility] CARE/DAY 50 MINUTES RADEX ABD 91601 [facility] COMPL 1 MEDICAL JONATHAN AQT ABD IMAGING W/S/E/D ASS VIEWS 1 VIEW RADEX ABD 46794 [facility] COMPL 1 MEDICAL JONATHAN AQT ABD IMAGING W/S/E/D [place] [address] [place] [address] SACHA ANJALI ABDOMEN & 1 MEDICAL JONATHAN PELVIS IMAGING W/CONTRAS ASS T MATERIAL ECG 80987 [facility] DA ROUTINE 1 [facility] W/LEAST P 12 LDS I&R ONLY 3D 83582 SACHA ANJALI RENDERING 1 MEDICAL JONATHAN IMAGING W/INTERP& ASS POSTPROC DIFF WORK STATION [facility] 61882 C [facility] 1 MINNIEJOSELIN [facility] DONOVAN PECK [facility] MANAGEMEN T 30 MIN/< SBSQ 52403 C [facility] 1 MINNIEJOSELIN [facility]/DAY [facility] 15 MINUTES RADEX 26530 [facility]JAL[facility] ABDOMEN 1 MEDICAL JONATHAN COMPL IMAGING W/DCBTS&/ ASS ERC VIEWS SBSQ 93834 [facility] 1 MINNIEJOSELIN [facility]ARTMAN[facility]SELIN [facility]/DAY MD MEENU PECK [facility] 25 MINUTES INITIAL 28960 C [facility] 1 MINNIEJOSELIN [facility] TJ/DAY [facility] 70 MINUTES ALVEOLECT 71857 PRADEEP FERNÁNDEZ MOISÉS 1 JOSE RAMON JOSE RAMON W/CURTG OSTEITIS/ SEQUESTRE CTOMY DEEP D9220 [facility] FERNÁNDEZ SEDATION/ 1 JOSE RAMON JOSE RAMON GENERAL ANESTHESI A-1ST 30 MINUTES ALVEOLOPL 98603 PR[facility]EEP FERNÁNDEZ ASTY EACH 1 JOSE RAMON JOSE RAMON QUADRANT SPECIFY ORTHOPANT 38771 PRADEEP FERNÁNDEZ OGRAM 1 JOSE RAMON JOSE RAMON Encounters Encounter Start End Date Code Location Performer Type Date EMERGENCY 82349 [facility] GALLAGHER DEPT 6 6 PHYSICIAN U VISIT S, [facility] HIGH SEVERITY& THREAT [facility] - 6 6 [facility] OUTPATIEN INC T EMERGENCY 85455 [facility] 6 6 [facility] DEPARTMEN INC T VISIT HIGH/URGE NT SEVERITY OFFICE 25977 [facility] OUTPATIEN 5 5 CARE R H T VISIT ASSOCIATE 15 S MINUTES EMERGENCY 93092 [facility] GUADARRAMA DEPT 5 5 PHYSICIAN QAMAR VISIT S, [facility] HIGH SEVERITY& THREAT [facility] AFLREDO - 5 5 [facility] OUTPATIEN INC T OFFICE 32025 [facility] OUTPATIEN 5 5 [place] T NEW 45 MINUTES HOSPITAL [facility] - 4 4 HOSPITAL OUTPATIEN T EMERGENCY 60899 [facility] 4 4 [facility]OSPITAL JOSE RAMON DEPARTMEN T VISIT MODERATE SEVERITY [facility]OSPITAL [facility] - 4 4 [facility] OUTPATIEN [facility] T EMERGENCY 43496 [facility] 4 4 [facility] DEPARTMEN INC T VISIT LOW/MODER SEVERITY EMERGENCY 88401 [facility] CHIARA 4 4 FELIX QAMAR DEPARTMEN EMERGENCY T VISIT PHYS MODERATE SEVERITY [facility] - 4 4 HOSPITAL OUTPATIEN T EMERGENCY 96048 [facility] 4 4 HOSPITAL DEPARTMEN T VISIT MODERATE SEVERITY [facility] - 4 4 HOSPITAL OUTPATIEN T EMERGENCY 23186 [facility] 4 4 HOSPITAL DEPARTMEN T VISIT MODERATE SEVERITY OFFICE 38603 ANNEMARIE FLANAGAN CONSULTAT 1 1 ION NEW/ESTAB PATIENT 80 MIN [facility] - 1 1 [facility] INPATIENT [facility]PITAL [facility] - 1 1 [facility] INPATIENT [facility] EMERGENCY 09258 KATIE ALBRIGHT DEPT 1 1 EMERGENCY VISIT SERVICES HIGH SEVERITY& THREAT [facility] - 1 1 [facility] INPATIENT [facility] OFFICE 72649 PRADEEP FERNÁNDEZ OUTPATIEN 1 1 JOSE RAMON JOSE RAMON T NEW 10 MINUTES
--- OUTSIDE RECORDS SUMMARY | 2017-07-08 04:49 | External Medical Summary Rpt ---
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 Name Role Phone ANIBAL ALMEIDA, ANIBAL Unavailable Unavailable ELLE MADRID [facility], Unavailable Unavailable [facility], Unavailable Unavailable [facility] Pua GUTIERREZ MD Unavailable Unavailable [facility], C JANNETTE GUTIERREZ MD [facility] ANJALI, ANJALI Unavailable Unavailable ANJALI JONATHAN, Unavailable Unavailable ANJALI JONATHAN [facility], Unavailable Unavailable [facility] Unavailable Unavailable [facility] [place], [facility] [place] [facility] Unavailable [facility], [facility] [place] JOSE RAMON, [place] Unavailable Unavailable JOSE RAMON CHIARA QAMAR, CHIARA Unavailable Unavailable QAMAR ZULETA JOSE RAMON, ZULETA JOSE RAMON Unavailable Unavailable JR MARLY MNEDOZA, Unavailable Unavailable JR MARLY MENDOZA [facility] Un[facility] Unavailable [facility], [facility] FERNÁNDEZ JOSE RAMON, Unavailable Unavailable FERNÁNDEZ JOSE RAMON FERNÁNDEZ JOSE RAMON, Unavailable Unavailable FERN[facility] JOSE RAMON [facility] DA ANAYA, Unavailable Unavailable DA ANAYA [facility], Unavailable Unavailable [facility] Olinda Ma, Unavailable Unavailable [facility], Un[facility]available [facility], [facility] SHARPE MASHA, SHARPE MASHA Unavailable Unavailable SHARPE MASHA, SHARPE MASHA Unavailable Unavailable [facility] Unavailable Unavailable [id number] [address] [id number], [facility] [id number] # [id number] [facility] ALEKSANDR, Unavailable Unavailable [facility] ALEKSAN[facility] ALEKSAN[facility], Unavailable Unavailable [facility]KS[facility] SCIFRES ANG, SCIFRES Unavailable Unavailable ANG SCIFRES ANG, SCIFRES Unavailable Unavailable ANG SOTINGEANU, Unavailable Unavailable [facility] # Unavailable Unavailable [id number], [facility] # [id number] Purpose Continuity of Care Document - 05-29-2011 [...] & COLITIS UNS R112 NAUSEA WITH 09-20-2016 [facility]PECIF[facility] Z720 TOBACCO USE 09-20-2016 [facility] 82766 INTESTINAL 06-06-2015 [facility] DUE CLOSTRIDIUM DIFFICILE 4019 UNSPECIFIED 06-06-2015 [facility]ENTIAL [facility] HYPERTENSIO N 00815 OTHER 06-06-2015 [facility] TENOSYNOVIT [facility] IS OF HAND AND WRIST 44208 OTHER 05-31-2015 [facility] DISEASES OF MEDICAL LUNG NOT IMAGING ASS ELSEWHERE CLASSIFIED 82338 OTHER 05-31-2015 [facility] SPECIF[facility] DISORDER OF [facility]ING [facility] INTESTINES 38377 ABDOMINAL 05-31-2015 [facility] PAIN, [facility]ICAL UNSPECIFIED IMAGING ASS SITE 18222 NAUSEA WITH 05-28-2015 [facility] 7873 FLATULENCE 05-28-2015 [facility] PAIN V5882 ENCOUNTER 05-28-2015 [facility] FITTING&ADJ [facility] [place] 92651 LEUKOCYTOSI 05-27-2015 [facility] UNSPECIFIED [facility] 5920 CALCULUS OF 05-27-2015 [facility] 5932 ACQUIRED 05-27-2015 [facility] CYST OF [facility]NEY [facility] 90586 DIARRHEA 05-27-2015 [facility] V154 PERS HX 03-29-2015 [facility] TRAUMA PRS [facility] 41745 NUCLEAR 01-10-2015 [facility] SCLEROSIS [facility] 3669 UNSPECIFIED 01-10-2015 [facility]ACT [facility] 71750 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 3688 OTHER 12-06-2014 [facility] SPECIFIED [facility] VISUAL DISTURBANCE S 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 [facility] 3674 PRESBYOPIA 10-21-2014 SCIFRES ANG 3829 UNSPECIFIED 08-14-2014 [facility] MEDIA 96915 UNSPECIFIED 08-11-2014 [facility] OTITIS PHYS EXTERNA 4139 OTHER AND 08-11-2014 [facility]PECIFIED [facility] ANGINA INC PECTORIS V148 PERSONAL 08-11-2014 [facility] HISTORY [facility] ALLERGY OTH INC SPEC MEDICINAL AGTS 7840 HEADACHE 07-11-2014 [facility] 5559 REGIONAL 09-09-2011 [facility] ENTERITIS LAEKSANDR OF UNSPECIFIED SITE 20448 NAUSEA 09-09-2011 [facility] 61883 ABDOMINAL 09-09-2011 [facility] PAIN, ALEKSANDR GENERALIZED 7934 NONSPECIFIC 09-09-2011 SHARPE MASHA ABN FINDING RAD & OTH EXAM GI TRACT 7936 NONSPEC ABN 09-09-2011 [facility] FINDNG [facility]ICAL & OTH EXAM IMAGING ASS ABDOMINAL AREA 5589 OTH&UNSPEC 07-20-2011 [facility] NONINFECTIO [facility] US INC GASTROENTER ITIS&COLITI S 62950 OTHER 07-20-2011 [facility] FUNCTIONAL [facility] DISORDERS INC OF INTESTINE 5609 UNSPECIFIED 07-19-2011 [facility] OBSTRUCTION 5601 PARALYTIC 07-12-2011 [facility]US [facility] 14425 DENTAL 06-05-2011 FERNÁNDEZ CARIES JOSE RAMON EXTENDING [...] 00 7- 1- 00 00 IC ve AL 98 20 20 41 IL 10 17 [...] 00 0- 0- 00 00 IC ve AL 98 20 20 41 IL 10 17 [...] 00 1- 5- 00 00 IC ve AL 51 20 20 41 IL 50 17 [...] 00 0- 7- 00 00 IC ve AL 51 20 20 41 IL 50 17 [...] 00 1- 0- 00 00 IC ve AL 51 20 20 41 IL 50 17 [...] 01 02 20 10 00 CL Ac AL 57 -1 -1 .0 00 IN ti [...] 00 7- 0- 00 00 IC ve AL 51 20 20 41 IL 50 16 [...] CY LA TE 5 MG TA B AL 68 09 09 0 12 2 WA [...] 34 7- 7- 00 34 ER ve AL 59 20 20 AI SO ED 31 [...] 11 CE 5 PH KE TA AR ND MA N NO CY C PH N [...] Procedure [place] [address] [facility] THERAPY [place] [address] [facility] THERAPY/P INC INC ROPHYLAXI S /DX 1ST TO 1 HR THERAPEUT 68192 [facility] IC 6 [facility] INJECTION [place] [address] [facility] THER INC INC PROPH ADDL SEQUENTIA L TO 1 HR COMPREHEN 66862 [facility] SIVE 6 [facility] [place] [address] [facility] AMYLASE 6 [facility] INC INC URNLS DIP 44971 [facility] 6 [facility] STICK/TAB INC INC LET REAGENT AUTO MICROSCOP Y BLOOD 60449 [facility] COUNT 6 [facility] COMPLETE INC INC AUTO&[place] [address] [facility] LIPASE 6 [facility] [place] [address] [facility] ABDOMEN & 6 MEDICAL PELVIS IMAGING W/O ASS CONTRAST MATERIAL DRUG TST G0477 [facility] PRESUMP;C 6 [facility] PBL BEING INC INC READ DC OPT OBV ONLY CULTURE 23810 [facility] BACTERIAL 6 [facility] INC INC QUANTTATI VE COLONY COUNT URINE RADEX ABD 20651 [facility] COMPL 5 MEDICAL JONATHAN AQT ABD IMAGING W/S/E/D ASS VIEWS 1 VIEW CH RADIOLOGI 97198 [facility] C 5 MEDICAL ELLE EXAMINATI IMAGING ON CHEST ASS SINGLE VIEW FRONTAL RADEX ABD 08309 [facility] COMPL 5 MEDICAL ELLE AQT ABD IMAGING W/S/E/D [place] [address] [place] [address] [facility] ABDOMEN & 5 MEDICAL ELLE PELVIS IMAGING W/O ASS CONTRAST MATERIAL POSTERIOR V2632 [facility] CHAMBER 5 [facility] INTRAOCUL INC INC AR LENS CATARACT 51629 [facility] REMOVAL 5 [place] INSERTION OF LENS OPH BMTRY 07820 [facility] US 5 [place] ECHOGRAPY A-SCAN IO LENS PWR BOBBY OPHTH 13064 [facility] 5 ANG ANG XM&EVAL COMPRE NEW PT 1/> VST INJECTION J1885 [facility] [address] [place] [address] KETOROLAC TROMETHAM INE PER 15 MG THERAPEUT 42888 [facility] IC [address] [place] [address] PROPHYLAC TIC/DX INJECTION SUBQ/IM INJECTION J2550 MAYE MENDOZA, [address] [place] [address] PROMETHAZ INE HCL UP TO 50 MG THERAPEUT 40717 [facility] IC 4 [facility] PROPHYLAC INC INC TIC/DX INJECTION SUBQ/IM UNCLASSIF J3490 [facility] [address] [place] [address] [facility] DISCHARGE 1 ALEKSANDR ALEKSANDR DAY MANAGEMEN T 30 MIN/< SBSQ 80533 [facility] 1 ALEKSANDR ALEKSANDR CARE/DAY 15 MINUTES INITIAL 93223 [facility] 1 ALEKSANDR ALEKSANDR CARE/DAY 70 MINUTES RADEX ABD 74692 [facility] COMPL 1 MEDICAL JONATHAN AQT ABD IMAGING W/S/E/D ASS VIEWS 1 VIEW OBSERVATI 19072 C JANNETTE GUTIERREZ ON CARE 1 MATT BRANDON DISCHARGE [facility] MANAGEMEN T INITIAL 31513 C JANNETTE GUTIERREZ OBSERVATI 1 MATT BRANDON ON PSC CARE/DAY 30 MINUTES INITIAL 80923 C JANNETTE GUTIERREZ OBSERVATI 1 MATT BLEDSOE MD [facility] CARE/DAY 50 MINUTES RADEX ABD 24730 [facility] COMPL 1 MEDICAL JONATHAN AQT ABD IMAGING W/S/E/D ASS VIEWS 1 VIEW RADEX ABD 17252 [facility] COMPL 1 MEDICAL JONATHAN AQT ABD IMAGING W/S/E/D [place] V[place] [address] [place] [address] SACHA ANJALI ABDOMEN & 1 MEDICAL JONATHAN PELVIS IMAGING W/CONTRAS ASS T MATERIAL ECG 43076 [facility] DA ROUTINE 1 [facility] W/LEAST P 12 LDS I&R ONLY 3D 24777 SACHA ANJALI RENDERING 1 MEDICAL JONATHAN IMAGING W/INTERP& ASS POSTPROC DIFF WORK STATION [facility] 32615 C [facility] DISCHARGE 1 IMNNIEJOSELIN [facility] DONOVAN PECK [facility] MANAGEMEN T 30 MIN/< SBSQ 99926 C [facility] 1 MINNIEJOSELIN [facility]/DAY [facility] 15 MINUTES RADEX 00786 [facility]AL[facility] ABDOMEN 1 MEDICAL JONATHAN COMPL IMAGING W/DCBTS&/ ASS ERC VIEWS SBSQ 21892 C [facility] 1 MINNIEJOSELIN HARTMANJOSELIN [facility]/DAY MD MEENU PECK [facility] 25 MINUTES INITIAL 92531 C [facility] 1 MINNIEJOSELIN [facility] JT/DAY [facility] 70 MINUTES ALVEOLECT 85269 PRADEEP FERNÁNDEZ MOISÉS 1 JOSE RAMON JOSE RAMON W/CURTG OSTEITIS/ SEQUESTRE CTOMY DEEP D9220 [facility] FERNÁNDEZ SEDATION/ 1 JOSE RAMON JOSE RAMON GENERAL ANESTHESI A-1ST 30 MINUTES ALVEOLOPL 79096 PRADEEP FERNÁNDEZ ASTY EACH 1 JOSE RAMON JOSE RAMON QUADRANT SPECIFY ORTHOPANT 31565 PRADEEP FERNÁNDEZ OGRAM 1 JOSE RAMON JOSE RAMON Encounters Encounter Start End Date Code Location Performer Type Date EMERGENCY 19643 [facility] GALLAGHER DEPT 6 6 PHYSICIAN U VISIT S, [facility] HIGH SEVERITY& THREAT [facility] - 6 6 [facility] OUTPATIEN INC T EMERGENCY 36440 [facility] 6 6 [facility] DEPARTMEN INC T VISIT HIGH/URGE NT SEVERITY OFFICE 82538 [facility] OUTPATIEN 5 5 CARE R H T VISIT ASSOCIATE 15 S MINUTES EMERGENCY 70150 [facility] GUADARRAMA DEPT 5 5 PHYSICIAN QAMAR VISIT S, [facility] HIGH SEVERITY& THREAT [facility] - 5 5 [facility] OUTPATIEN INC T OFFICE [address] [facility] OUTPATIEN 5 5 [place] T NEW 45 MINUTES [facility] - 4 4 [facility]PITAL OUTPATIEN T EMERGENCY 03484 [facility] 4 4 [facility] JOSE RAMON DEPARTMEN T VISIT MODERATE SEVERITY [facility] - 4 4 [facility]EN [facility] T EMERGENC[facility] 15716 [facility] 4 4 [facility] DEPARTMEN INC T VISIT LOW/MODER SEVERITY EMERGENCY 80563 [facility] CHIARA 4 4 FELIX QAMAR DEPARTMEN EMERGENCY T VISIT PHYS MODERATE SEVERITY [facility] - 4 4 HOSPITAL OUTPATIEN T EMERGENCY 61267 [facility] 4 4 HOSPITAL DEPARTMEN T VISIT MODERATE SEVERITY [facility] - 4 4 HOSPITAL OUTPATIEN T EMERGENCY 66929 [facility] 4 4 HOSPITAL DEPARTMEN T VISIT MODERATE SEVERITY OFFICE 77408 ANNEMARIE FLANAGAN CONSULTAT 1 1 ION NEW/ESTAB PATIENT 80 MIN [facility] - 1 1 [facility] INPATIENT [facility] - 1 1 [facility] INPATIENT [facility] EMERGENCY 38978 KATIE ALBRIGHT DEPT 1 1 EMERGENCY VISIT SERVICES HIGH SEVERITY& THREAT [facility] - 1 1 [facility] INPATIENT [facility] OFFICE 88791 PRADEEP FERNÁNDEZ OUTPATIEN 1 1 JOSE RAMON JOSE RAMON T NEW 10 MINUTES
--- OUTSIDE RECORDS SUMMARY | 2017-07-08 04:50 | External Medical Summary Rpt ---
Author Author LAURELMARY ELLEN Forte, [employer] [employer] Organization [employer] Address Unknown Phone Unavailable Results CBC W Auto Differential panel in Blood Observa Value Referen Units Interpr Notes Date tion ce etation Range Basophils 0 - 0.2 K/MM3 Normal No Sep 15 informati 2017 6:40 [#/volume on in AM ] in source Blood by data Automated count Basophils 0.1 - 2.0 % Normal No Sep 15 /100 informati 2017 6:40 leukocyte on in AM s in source Blood by data Automated count Eosinophi 0.0 - 0.4 K/mm3 Normal No Sep 15 ls informati 2017 6:40 [#/volume on in AM ] in source Blood by data Automated count Eosinophi 0.1 - % Normal No Sep 15 ls/100 12.0 informati 2017 6:40 leukocyte on in AM s in source Blood by data Automated count Granulocy 1.3 - 8.0 K/mm3 High No Sep 15 [place] informati 2017 6:40 [#/volume on in AM ] in source Blood by data Automated count Granulocy 37.0 - % Normal No Sep 15 [place]/100 80.0 informati 2017 6:40 leukocyte on in AM s in source Blood by data Automated count Hematocri 42.0 - % Low No Sep 15 t [Volume 52.0 informati 2017 6:40 on in AM Fraction] source of Blood data Hemoglobi 14.1 - g/dL No No Sep 15 n 18.0 informati informati 2017 6:40 [Mass/vol on in on in AM ume] in source source Blood data data Lymphocyt 0.7 - 4.5 K/mm3 Normal No Sep 15 es informati 2017 6:40 [#/volume on in AM ] in source Unspecifi data ed specimen by Automated count Lymphocyt 10 - 50 % Normal No Sep 15 es informati 2017 6:40 [#/volume on in AM ] in source Unspecifi data ed specimen by Automated count Erythrocy 27 - 31.2 pg Normal No Sep 15 te mean informati 2017 6:40 corpuscul on in AM ar source hemoglobi data n [Entitic mass] Erythrocy 31.8 - g/dl Normal No Sep 15 te mean 35.4 informati 2017 6:40 corpuscul on in AM ar source hemoglobi data n concentra tion [Mass/vol ume] by Automated count Erythrocy 82.2 - fl Normal No Sep 15 te mean 97.8 informati 2017 6:40 corpuscul on in AM ar volume source [Entitic data volume] by Automated count Monocytes 0.1 - 1.0 K/mm3 Normal No Sep 15 informati 2017 6:40 [#/volume on in AM ] in source Blood by data Automated count Monocytes 1.7 - 9.3 % Normal No Sep 15 /100 informati 2017 6:40 leukocyte on in AM s in source Blood by data Automated count Platelet 7.4 - fl Normal No Sep 15 mean 10.4 informati 2017 6:40 volume on in AM [Entitic source volume] data in Blood by Automated count Platelets 142 - 424 K/mm3 No No Sep 15 informati informati 2017 6:40 [#/volume on in on in AM ] in source source Blood data data Erythrocy 4.6 - 6.2 M/mm3 Low No Sep 15 [place] informati 2017 6:40 [#/volume on in AM ] in source Amniotic data fluid Erythrocy 11.5 - % Normal No Sep 15 te 17.5 informati 2017 6:40 distribut on in AM ion width source [Entitic data volume] by Automated count Leukocyte 4.8 - K/MM3 High No Sep 15 s 10.8 informati 2017 6:40 [#/volume on in AM ] in source Blood data Basic metabolic panel in Blood Observa Value Referen Units Interpr Notes Date tion ce etation Range Urea 7 - 18 mg/dL Normal No Sep 15 nitrogen informati 2017 6:40 [Mass/vol on in AM ume] in source Serum or data Plasma Calcium 8.5 - mg/dL Low No Sep 15 [Mass/vol 10.1 informati 2017 6:40 ume] in on in AM Serum or source Plasma data Chloride 98 - 107 mmoL/L High No Sep 15 [Moles/vo informati 2017 6:40 lume] in on in AM Serum or source Plasma data Carbon 21.0 - mmoL/L Normal No Sep 15 dioxide, 32.0 informati 2017 6:40 total on in AM [Moles/vo source lume] in data Serum or Plasma Creatinin 0.70 - mg/dL No No Sep 15 e 1.30 informati informati 2017 6:40 [Mass/vol on in on in AM ume] in source source Serum or data data Plasma Creatinin 50 - 200 ML/MIN No No Sep 15 e renal informati informati 2017 6:40 clearance on in on in AM source source predicted data data by Cockcroft -Gault formula Estimated >60 ML/MIN No REFERENCE Sep 15 informati RANGE: 2017 6:40 glomerula on in >60 AM r source ML/MIN/1. filtratio data 73 SQUARE n rate METERSIf (GF this patient is -A merican, then multiply theresult by 1.210. Glucose 74 - 106 mg/dL Normal No Sep 15 [Mass/vol informati 2017 6:40 ume] in on in AM Serum or source Plasma data Potassium 3.5 - 5.1 mmoL/L Normal No Sep 15 informati 2017 6:40 [Moles/vo on in AM lume] in source Serum or data Plasma Sodium 136 - 145 mmoL/L Normal No Sep 15 [Moles/vo informati 2017 6:40 lume] in on in AM Serum or source Plasma data Lactate [Moles/volume] in Serum or Plasma Observa Value Referen Units Interpr Notes Date tion ce etation Range Lactate 0.4 - 2.0 MMOL/L High An Sep 14 [Moles/vo elevated 2017 7:03 lume] in Lactic AM Serum or Acid is Plasma suggestiv e of sepsis and shouldbe repeated within 6 hours of initial testing. Erythrocyte sedimentation rate by Westergren method Observa Value Referen Units Interpr Notes Date tion ce etation Range Erythrocy 0 - 20 mm/hr Normal No Sep 14 te informati 2017 2:15 sedimenta on in AM tion rate source by data Westergre n method CBC W Auto Differential panel in Blood Observa Value Referen Units Interpr Notes Date tion ce etation Range Basophils 0 - 0.2 K/MM3 Normal No Sep 14 informati 2017 2:15 [#/volume on in AM ] in source Blood by data Automated count Basophils 0.1 - 2.0 % Normal No Sep 14 /100 informati 2017 2:15 leukocyte on in AM s in source Blood by data Automated count Eosinophi 0.0 - 0.4 K/mm3 Normal No Sep 14 ls informati 2016 2:15 [#/volume on in AM ] in source Blood by data Automated count Eosinophi 0.1 - % Normal No Sep 14 ls/100 12.0 informati 2016 2:15 leukocyte on in AM s in source Blood by data Automated count Granulocy 1.3 - 8.0 K/mm3 High No Sep 14 [place] informati 2016 2:15 [#/volume on in AM ] in source Blood by data Automated count Granulocy 37.0 - % High No Sep 14 [place]/100 80.0 informati 2016 2:15 leukocyte on in AM s in source Blood by data Automated count Hematocri 42.0 - % Normal No Sep 14 t [Volume 52.0 informati 2016 2:15 on in AM Fraction] source of Blood data Hemoglobi 14.1 - g/dL Normal No Sep 14 n 18.0 informati 2016 2:15 [Mass/vol on in AM ume] in source Blood data Lymphocyt 0.7 - 4.5 K/mm3 Normal No Sep 14 es informati 2017 2:15 [#/volume on in AM ] in source Unspecifi data ed specimen by Automated count Lymphocyt 10 - 50 % Low No Sep 14 es informati 2017 2:15 [#/volume on in AM ] in source Unspecifi data ed specimen by Automated count Erythrocy 27 - 31.2 pg Normal No Sep 14 te mean informati 2017 2:15 corpuscul on in AM ar source hemoglobi data n [Entitic mass] Erythrocy 31.8 - g/dl Normal No Sep 14 te mean 35.4 informati 2017 2:15 corpuscul on in AM ar source hemoglobi data n concentra tion [Mass/vol ume] by Automated count Erythrocy 82.2 - fl Normal No Sep 14 te mean 97.8 informati 2017 2:15 corpuscul on in AM ar volume source [Entitic data volume] by Automated count Monocytes 0.1 - 1.0 K/mm3 Normal No Sep 14 informati 2016 2:15 [#/volume on in AM ] in source Blood by data Automated count Monocytes 1.7 - 9.3 % Normal No Sep 14 /100 informati 2016 2:15 leukocyte on in AM s in source Blood by data Automated count Platelet 7.4 - fl Normal No Sep 14 mean 10.4 informati 2016 2:15 volume on in AM [Entitic source volume] data in Blood by Automated count Platelets 142 - 424 K/mm3 Normal No Sep 14 informati 2016 2:15 [#/volume on in AM ] in source Blood data Erythrocy 4.6 - 6.2 M/mm3 Normal No Sep 14 [place] informati 2016 2:15 [#/volume on in AM ] in source Amniotic data fluid Erythrocy 11.5 - % Normal No Sep 14 te 17.5 informati 2016 2:15 distribut on in AM ion width source [Entitic data volume] by Automated count Leukocyte 4.8 - K/MM3 High No Sep 14 s 10.8 informati 2016 2:15 [#/volume on in AM ] in source Blood data Differential panel, method unspecified - Observa Value Referen Units Interpr Notes Date tion ce etation Range Anisocy 1+ No No No No Sep 14 tosis informa informa informa informa 2016 [Presen tion in tion in tion in tion in 2:15 AM ce] in source source source source Blood data data data data LYMPH 7 10 - 50 % Low No Sep 14 informa 2017 tion in 2:15 AM source data Platele NORMAL No No No No Sep 14 ts informa informa informa informa 2016 [Presen tion in tion in tion in tion in 2:15 AM ce] in source source source source Blood data data data data by Light microsc opy Neutrophi 42 - 76 % High No Sep 14 ls ati 2016 2:15 [#/volume on in AM ] in source Blood by data Automated count Cells No #CELLS No No Sep 14 Counted informati informati informati 2016 2:15 Total [#] on in on in on in AM in Blood source source source data data data Amylase [Enzymatic activity/volume] in Serum or Plasma Observa Value Referen Units Interpr Notes Date tion ce etation Range Amylase 25 - 115 U/L Normal No Sep 14 [Enzymati informati 2017 2:15 c on in AM activity/ source volume] data in Serum or Plasma Comprehensive metabolic 2000 panel in Serum or Plasma Observa Value Referen Units Interpr Notes Date tion ce etation Range Albumin/G 1.1 - 1.8 No Normal No Sep 14 lobulin informati informati 2017 2:15 [Mass on in on in AM ratio] in source source Serum or data data Plasma Albumin 3.4 - 5.0 gm/dL Normal No Sep 14 [Mass/vol informati 2017 2:15 ume] in on in AM Serum or source Plasma data Alkaline 46 - 116 U/L Normal No Sep 14 phosphata informati 2017 2:15 se on in AM [Enzymati source c data activity/ volume] in Serum or Plasma Bilirubin 0.2 - 1.0 mg/dL High No Sep 14 .total informati 2017 2:15 [Mass/vol on in AM ume] in source Serum or data Plasma Urea 7 - 18 mg/dL High No Sep 14 nitrogen informati 2017 2:15 [Mass/vol on in AM ume] in source Serum or data Plasma Calcium 8.5 - mg/dL Normal No Sep 14 [Mass/vol 10.1 informati 2017 2:15 ume] in on in AM Serum or source Plasma data Chloride 98 - 107 mmoL/L Normal No Sep 14 [Moles/vo informati 2017 2:15 lume] in on in AM Serum or source Plasma data Carbon 21.0 - mmoL/L Normal No Sep 14 dioxide, 32.0 informati 2017 2:15 total on in AM [Moles/vo source lume] in data Serum or Plasma Creatinin 0.70 - mg/dL High No Sep 14 e 1.30 informati 2017 2:15 [Mass/vol on in AM ume] in source Serum or data Plasma Creatinin 50 - 200 ML/MIN Normal No Sep 14 e renal informati 2017 2:15 clearance on in AM source predicted data by Cockcroft -Gault formula Estimated >60 ML/MIN No REFERENCE Sep 14 informati RANGE: 2017 2:15 glomerula on in >60 AM r source ML/MIN/1. filtratio data 73 SQUARE n rate METERSIf (GF this patient is -A merican, then multiply theresult by 1.210. Globulin 1.3 - 3.2 gm/dL High No Sep 14 [Mass/vol informati 2017 2:15 ume] in on in AM Serum source data Glucose 74 - 106 mg/dL High No Sep 14 [Mass/vol informati 2017 2:15 ume] in on in AM Serum or source Plasma data Potassium 3.5 - 5.1 mmoL/L Low No Sep 14 informati 2017 2:15 [Moles/vo on in AM lume] in source Serum or data Plasma Sodium 136 - 145 mmoL/L Normal No Sep 14 [Moles/vo informati 2017 2:15 lume] in on in AM Serum or source Plasma data Aspartate 15 - 37 U/L Normal No Sep 14 informati 2017 2:15 aminotran on in AM sferase source [Enzymati data c activity/ volume] in Serum or Plasma Alanine 12 - 78 U/L Normal No Sep 14 aminotran informati 2017 2:15 sferase on in AM [Enzymati source c data activity/ volume] in Serum or Plasma Protein 6.4 - 8.2 gm/dL High No Sep 14 [Mass/vol informati 2017 2:15 ume] in on in AM Serum or source Plasma data Lipase [Enzymatic activity/volume] in Serum or Plasma Observa Value Referen Units Interpr Notes Date tion ce etation Range Lipase 73 - 393 U/L Normal No Sep 14 [Enzymati informati 2017 2:15 c on in AM activity/ source volume] data in Serum or Plasma Lactate [Moles/volume] in Blood Observa Value Referen Units Interpr Notes Date tion ce etation Range Lactate 0.4 - 2.0 mmol/L High An Sep 14 [Moles/vo elevated 2017 2:15 lume] in Lactic AM Blood Acid is suggestiv e of sepsis and shouldbe repeated within 6 hours of initial testing.
--- OUTSIDE RECORDS SUMMARY | 2017-07-08 04:50 | External Medical Summary Rpt ---
Demographics Preferred Language Greek Marital Status Unknown [employer] Affiliation Unknown Race Unknown Ethnic Group Unknown Author Author [facility] Address Unknown Phone Immunization No patient found.
--- OUTSIDE RECORDS SUMMARY | 2017-07-08 04:50 | External Medical Summary Rpt ---
Demographics Preferred Language Greek Marital Status Unknown [employer] Affiliation Unknown Race Unknown Ethnic Group Unknown Author Author [facility] Address Unknown Phone Immunization No patient found.
--- OUTSIDE RECORDS SUMMARY | 2017-07-08 04:53 | External Medical Summary Rpt ---
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 Role Phone ANIBAL ALMEIDA, ANIBAL Unavailable Unavailable ELLE [facility], Unavailable Unavailable [facility], Unavailable Unavailable [facility] C JANNETTE GUTIERREZ MD Unavailable Unavailable [facility], C JANNETTE GUTIERREZ MD [facility]SC ANJALI, ANJALI Unavailable Unavailable ANJALI JONATHAN, Unavailable Unavailable ANJALI JONATHAN [facility], Unavailable Unavailable [facility], Unavailable Unavailable [facility] [place] [facility] [place] [facility] Unavailable [facility], [facility] [place] JOSE RAMON, [place] Unavailable Unavailable JOSE RAMON CHIARA QAMAR, CHIARA Unavailable Unavailable QAMAR ZULETA JOSE RAMONSONG JOSE RAMON Unavailable Unavailable JR MARLY MENDOZA, Unavailable Unavailable JR MARLY MENDOZA [facility] Unavailable Unavailable INC, [facility] Unavailable Unavailable Hospital, [facility] FERNÁNDEZ JOSE RAMON, Unavailable Unavailable FERNÁNDEZ JOSE RAMON FERNÁNDEZ JOSE RAMON, Unavailable Unavailable FERN[facility] JOSE RAMON [facility] Un[facility], [facility], Unavailable Unavailable [facility], Unavailable Unavailable [facility], Unavailable Unavailable [facility], Unavailable [facility]available [facility], [facility] SHARPE MASHA, SHARPE MASHA Unavailable Unavailable SHARPE MASHA, SHARPE MASHA Unavailable Unavailable [facility] Unavailable Unavailable [id number] # [id number], [facility] [id number] # [id number] [facility] ALEKSANDR, Unavailable Unavailable [facility] ALEKS[facility], Unavailable Unavailable [facility] SCIFRES ANG, SCIFRES Unavailable Unavailable ANG SCIFRES ANG, SCIFRES Unavailable Unavailable ANG SOTINGEANU, Unavailable Unavailable [facility] Unavailable Unavailable [facility], [facility] # Unavailable Unavailable [id number], [facility] # [id number] Purpose Continuity of Care Document - 05-29-2011 [...] & COLITIS UNS R112 NAUSEA WITH 09-20-2016 [facility]NSPECIFIED [facility] Z720 TOBACCO USE 09-20-2016 [facility] 15649 INTESTINAL 06-06-2015 [facility] DUE CLOSTRIDIUM DIFFICILE 4019 UNSPECIFIED 06-06-2015 [facility]ENTIAL [facility] HYPERTENSIO N 02780 OTHER 06-06-2015 [facility] TENOSYNOVIT [facility] IS OF HAND AND WRIST 33177 OTHER 05-31-2015 [facility] DISEASES OF MEDICAL LUNG NOT IMAGING ASS ELSEWHERE CLASSIFIED 26229 OTHER 05-31-2015 [facility] SPECIFIED [facility] DISORDER OF IMAGING ASS INTESTINES 07014 ABDOMINAL 05-31-2015 [facility] PAIN, MEDICAL UNSPECIFIED IMAGING ASS SITE 02449 NAUSEA WITH 05-28-2015 [facility] 7873 FLATULENCE 05-28-2015 [facility] ERUCTATION [facility] GAS [facility] PAIN V5882 ENCOUNTER 05-28-2015 [facility] FITTING&ADJ [facility]ICAL [facility] [place] [address]702 LEUKOCYTOSI 05-27-2015 [facility]NSPECIFIED [facility] 5920 CALCULUS OF 05-27-2015 [facility] 5932 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 [facility] 72596 DIARRHEA 05-27-2015 [facility] V154 PERS HX 03-29-2015 [facility] AL TRAUMA PRS [facility] 52305 NUCLEAR 01-10-2015 [facility] SCLEROSIS [facility] 3669 UNSPECIFIED 01-10-2015 [facility]ARACT [facility] 50650 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 3688 OTHER 12-06-2014 [facility] SPECIFIED [facility] VISUAL DISTURBANCE S 70630 DERMATOCHAL 12-06-2014 [facility] ASIS [facility] 3674 PRESBYOPIA 10-21-2014 [facility] ANG 3829 UNSPECIFIED 08-14-2014 [facility] MEDIA 66138 UNSPECIFIED 08-11-2014 [facility] OTITIS PHYS EXTERNA 4139 OTHER AND 08-11-2014 [facility] UNSPECIFIED [facility] ANGINA INC PECTORIS V148 PERSONAL 08-11-2014 [facility] HISTORY [facility] ALLERGY OTH INC SPEC MEDICINAL AGTS 7840 HEADACHE 07-11-2014 [facility] 5559 REGIONAL 09-09-2011 [facility] ENTERITIS ALEKSANDR OF UNSPECIFIED SITE 28090 NAUSEA 09-09-2011 [facility] 26347 ABDOMINAL 09-09-2011 [facility] PAIN, ALEKSANDR GENERALIZED 7934 NONSPECIFIC 09-09-2011 SHARPE MASHA ABN FINDING RAD & OTH EXAM GI TRACT 7936 NONSPEC ABN 09-09-2011 [facility] FINDNG RAD MEDICAL & OTH EXAM IMAGING ASS ABDOMINAL AREA 5589 OTH&UNSPEC 07-20-2011 [facility] NONINFECTIO [facility] US INC GASTROENTER ITIS&COLITI S 87417 OTHER 07-20-2011 [facility] FUNCTIONAL [facility] DISORDERS INC OF INTESTINE 5609 UNSPECIFIED 07-19-2011 [facility] OBSTRUCTION 5601 PARALYTIC 07-12-2011 [facility] I[facility]US [facility] 24921 DENTAL 06-05-2011 [facility] CARIES JOSE RAMON EXTENDING INTO PULP 5258 OTHER SPEC 06-05-2011 [facility] DISORDERS JOSE RAMON TEETH&SUPPO RTING STRUCTURES 560.9 Small bowel [facility] Allergies, Adverse Reactions, Alerts Type Drug Allergy [...] 00 7- 1- 00 00 IC ve GA 98 20 20 41 [place] 10 17 [...] 00 0- 0- 00 00 IC ve GA 98 20 20 41 IL 10 17 [...] IN ti NO 00 1- 5- 00 IC ve GA 51 20 20 41 IL 50 17 [...] IN ti NO 00 0- 7- 00 IC ve GA 51 20 20 41 IL 50 17 [...] IN ti ON 15 3- 0- 00 IC ve ID 21 20 20 41 AZ 50 17 17 72 PH OL 5 38 AR E MA 50 CY 0 MG TA BL ET LI 68 01 02 30 30 00 CL Ac SI 18 -1 -1 .0 00 IN ti NO 00 1- 0- 00 00 IC ve GA 51 20 20 41 IL 50 17 [...] 01 02 20 10 00 CL Ac GA 57 -1 -1 .0 00 IN ti [...] 00 7- 0- 00 00 IC ve GA 51 20 20 41 IL 50 16 [...] TH 74 -0 YL 60 3- Lo GA 00 20 ng ED 10 13 er NI 6 SO Ac LO ti NE ve 4 MG TA BL ET ME 59 03 0 No TH 74 -0 YL 60 2- Lo GA 00 20 ng ED 10 13 er [...] ti ML ve Sy ri ng e GA 00 03 2 No OM 64 -0 ET 11 1- Lo WELCH 49 20 ng ZI 53 13 er NE 5 Ac 25 ti ve MG /M L AM PU L GA 68 09 09 0 12 2 WA [...] 34 7- 7- 00 34 ER ve GA 59 20 20 AI SO ED 31 [...] ST 90 EP ti AD 40 1 SI 43 HE ve OL 94 20 20 DE NS -A 60 11 11 CE 5 PH KE TA AR NH MA N NO CY C PH N [...] 013 mmoL/L .0 ed Cnc 06:28 Calcium 11-28- 8.5 8.5-10. complet 013 mg/dL 1 ed SerPl-m 06:28 Cnc CBC with AUTO DIFF (11-28-2012 06:28) WBC # 03-02-2 6.3 4.8-10. complet Bld 013 K/MM3 8 ed Auto 06:28 RBC # 03-2 5.49 4.6-6.2 complet Bld 013 M/mm3 ed Auto 06:28 Hgb 11-28-2 16.6 14.1-18 complet Bld-mCn 013 g/dL .0 ed c 06:28 Hct Fr 02-2 48.7 % 42.0-52 complet Bld 013 .0 ed 06:28 MCV RBC 03-02-2 88.7 fl 82.2-97 complet 013 .8 ed 06:28 MCH RBC -02-2 30.2 pg 27-31.2 complet Qn 013 ed Auto 06:28 MEAN 02-2 34.0 31.8-35 complet CORPUSC 013 g/dl .4 ed ULAR 06:28 HGB CONC RDW RBC 02-2 13.5 % 11.5-17 complet Auto 013 .5 ed 06:28 Platele 11-28-2 262 142-424 complet t Bld 013 K/mm3 ed Ql 06:28 Manual MEAN 7.5 fl 7.4-10. complet PLATELE 013 4 ed T 06:28 VOLUME Granulo -02-2 61.3 % 37.0-80 complet cytes 013 .0 ed Fr Bld 06:28 Auto LYMPH % 02-2 26.0 % 10-50 complet 013 ed 06:28 Monocyt 0302-2 10.7 % 1.7-9.3 complet es Fr 013 ed Bld 06:28 Auto Eosinop 03-02-2 1.6 % 0.1-12. complet hil Fr 013 0 ed Bld 06:28 Auto Basophi -02-2 0.4 % 0.1-2.0 complet ls Fr 013 [...] 013 K/mm3 ed Bld 06:28 Auto Basophi 03-02-2 0.0 0-0.2 complet ls # 013 K/MM3 ed Bld 06:28 Auto URINALYSIS/COMPLETE (11-28-2012 00:20) URINE 03-02-2 YELLOW YELLOW complet COLOR 013 ed 00:20 [...] K/MM3 8 ed Auto 21:05 RBC # 11-27- 5.74 4.6-6.2 complet Bld 013 M/mm3 ed [...] 013 4 ed T 21:05 VOLUME Granulo 68.4 % 37.0-80 complet cytes 013 .0 ed Fr Bld 21:05 Auto LYMPH % 18.9 % 10-50 complet 013 ed 21:05 Monocyt 11.9 % 1.7-9.3 complet es Fr 013 ed Bld 21:05 Auto Eosinop 11-27-2 0.7 % 0.1-12. complet hil Fr 013 0 ed Bld 21:05 Auto Basophi 11-27-2 0.1 % 0.1-2.0 complet ls Fr 013 ed Bld 21:05 Auto Granulo 11-27-2 4.4 1.3-8.0 complet cytes # 013 K/mm3 ed Bld 21:05 Auto Lymphoc 11-27-2 1.2 0.7-4.5 complet ytes Fr 013 K/mm3 ed Bld 21:05 Auto Monocyt 11-27-2 0.8 0.1-1.0 complet es # 013 K/mm3 ed Bld 21:05 Auto Eosinop 11-27-2 0.0 0.0-0.4 complet hil # 013 K/mm3 ed Bld 21:05 Auto Basophi 11-27-2 0.0 0-0.2 complet ls # 013 K/MM3 ed Bld 21:05 Auto Procedures Procedure DOS Code Location Performer Comment IV [id number] 75078 [facility] 6 [facility]ER[facility] INC ROPHYLAXI S /DX 1ST TO 1 HR THERAPEUT 05971 [facility] IC 6 [facility] INJECTION INC [place] [address] [facility] INFUSION 6 [facility] THER INC INC PROPH ADDL SEQUENT[place] L [place] 1 [place] [address] [facility] INFUSION 6 [facility] THERAPY INC INC PROPHYLAX IS/DX EA HOUR COMPREHEN 96016 [facility] SIVE 6 [facility] METABOLIC INC INC PANEL DRUG TST G0477 [facility] PRESUMP;C 6 [facility] PBL BEING INC [place] [address] [facility] AMYLASE 6 [facility] [place] [address] [facility] ABDOMEN & 6 MEDICAL PELVIS IMAGING W/O ASS CONTRAST MATERIAL URNLS DIP 25036 [facility] 6 [facility] STICK/TAB INC INC LET REAGENT AUTO MICROSCOP Y BLOOD 58259 [facility] COUNT 6 [facility] COMPLETE INC INC AUTO&[place] [address] [facility] LIPASE 6 [facility] INC INC CULTURE 61395 [facility] BACTERIAL 6 [facility] INC INC QUANTTATI VE COLONY COUNT URINE RADEX ABD 45332 [facility] AN[facility] COMPL 5 MEDICAL JONATHAN AQT ABD IMAGING W/S/E/D ASS VIEWS 1 VIEW CH RADIOLOGI 10966 [facility] C 5 MEDICAL ELLE EXAMINATI IMAGING ON CHEST ASS SINGLE VIEW FRONTAL RADEX ABD 26375 [facility] COMPL 5 MEDICAL ELLE AQT ABD IMAGING W/S/E/D ASS VIE[place] [address] [place] [address] [facility] ABDOMEN & 5 MEDICAL ELLE PELVIS IMAGING W/O ASS CONTRAST MATERIAL POSTERIOR V2632 [facility] CHAMBER 5 [facility] INTRAOCUL INC INC AR LENS CATARACT 82819 [facility] REMOVAL 5 [place] INSERTION OF LENS OPH BMTRY 47208 [facility] US 5 [place] ECHOGRAPY A-SCAN IO LENS PWR BOBBY OPHTH 32145 [facility] MEDICAL 5 ANG ANG XM&EVAL COMPRE NEW PT 1/> VST THERAPEUT 87159 [facility] VILLAVICENCIO IC 4 [facility] PROPHYLAC TIC/DX INJECTION SUBQ/IM INJECTION J2550 MAYE MENDOZA, 4 [facility] JR MARLY PROMETHAZ INE HCL UP TO 50 MG INJECTION J1885 MAYE VILLAVICENCIO [address] [place] [address] KETOROLAC TROMETHAM INE PER 15 MG THERAPEUT 71929 [facility] IC 4 [facility] PROPHYLAC INC INC TIC/DX INJECTION SUBQ/IM UNCLASSIF J3490 SIKHVELASQUEZ VILLAVICENCIO IED DRUGS 4 [facility] [address]42 [facility] DISCHARGE 1 ALEKSANDR ALEKSANDR DAY MANAGEMEN T 30 MIN/< SBSQ 37113 [facility] 1 ALEKSANDR ALEKSANDR CARE/DAY 15 MINUTES INITIAL 52615 [facility] 1 ALEKSANDR ALEKSANDR CARE/DAY 70 MINUTES RADEX ABD 16748 [facility] AN[facility]ALI COMPL 1 MEDICAL JONATHAN AQT ABD IMAGING W/S/E/D ASS VIEWS 1 VIEW OBSERVATI 87370 C JANNETTE GUTIERREZ ON CARE 1 [facility] ALEKSANDR DISCHARGE [facility] MANAGEMEN T INITIAL 56362 C JANNETTE GUTIERREZ OBSERVATI 1 MATT BRANDON ON PSC CARE/DAY 30 MINUTES INITIAL 75426 C JANNETTE GUTIERREZ OBSERVATI 1 MATT BRANDON ON PSC CARE/DAY 50 MINUTES RADEX ABD 70781 [facility] ANJALI COMPL 1 MEDICAL JONATHAN AQT ABD IMAGING W/S/E/D ASS VIEWS 1 VIEW CH RADEX ABD 27560 [facility] AN[facility]ALI COMPL 1 MEDICAL JONATHAN AQT ABD IMAGING W/S/E/D ASS VIEWS 1 VIEW CH 3D 19078 [facility] AN[facility]ALI RENDERING 1 MEDICAL JONATHAN IMAGING W/INTERP& [place] [address] [facility] AN[facility]ALI ABDOMEN & 1 MEDICAL JONATHAN PELVIS IMAGING W/CONTRAS ASS T MATERIAL ECG 31652 [facility] ZION ROUTINE 1 [facility] W/LEAST P 12 LDS [facility] 40375 C [facility] DISCHARGE 1 MINNIEJOSELIN [facility] DONOVAN CORRIGAN MANAGEMEN T 30 MIN/< SBSQ 40179 C [facility] 1 [facility] CARE/DAY PSC 15 MINUTES RADEX 95664 SACHA ANJALI ABDOMEN 1 MEDICAL JONATHAN COMPL IMAGING W/DCBTS&/ ASS ERC VIEWS SBSQ 20814 C [facility] 1 MINNIEJOSELIN HARTMANJOSELIN CARE/DAY MD MEENU PECK PSC 25 MINUTES INITIAL 78740 C [facility] 1 [facility]IN [facility] CARE/DAY PSC 70 MINUTES DEEP D9220 [facility] FERNÁNEDZ SEDATION/ 1 JOSE RAMON JOSE RAMON GENERAL ANESTHESI A-1ST 30 MINUTES ALVEOLECT 45519 [facility] FERNÁNDEZ MOISÉS 1 JOSE RAMON JOSE RAMON W/CURTG OSTEITIS/ SEQUESTRE CTOMY ALVEOLOPL 20228 PR[facility]EEP FERNÁNDEZ ASTY EACH 1 JOSE RAMON JOSE RAMON QUADRANT SPECIFY ORTHOPANT 82864 PR[facility] FERNÁNDEZ OGRAM 1 JOSE RAMON JOSE RAMON Encounters Encounter Start End Date Code Location Performer Type Date [facility] - 6 6 [facility] OUTPATIEN INC T EMERGENCY 10228 K[facility] GALLAGHER DEPT 6 6 PHYSICIAN U VISIT S, [facility] HIGH SEVERITY& THREAT FUN EMERGENCY 70630 [facility] 6 6 [facility] DEPARTMEN INC T VISIT HIGH/URGE NT SEVERITY OFFICE 10449 [facility] OUTPATIEN 5 5 CARE R H T VISIT ASSOCIATE 15 S MINUTES EMERGENCY 25427 K[facility] GUADARRAMA DEPT 5 5 PHYSICIAN QAMAR VISIT S, PLLC HIGH SEVERITY& THREAT [facility] - 5 5 [facility] OUTPATIEN INC T OFFICE 04369 [facility] OUTPATIEN 5 5 [place] T NEW 45 MINUTES HOSPITAL [facility] - 4 4 HOSPITAL OUTPATIEN T EMERGENCY 98069 [facility] 4 4 HOSPITAL JOSE RAMON DEPARTMEN T VISIT MODERATE SEVERITY EMERGENCY 25417 [facility] 4 4 [facility] T VISIT PHYS MODERATE SEVERITY [facility]OSPITAL [facility] - 4 4 [facility] OUTPATIEN INC T EMERGENCY 60701 [facility] 4 4 [facility] DEPARTMEN INC T VISIT LOW/MODER SEVERITY [facility]OSPITAL [facility] - 4 4 HOSPITAL OUTPATIEN T EMERGENCY 75536 [facility] 4 4 HOSPITAL DEPARTMEN T VISIT MODERATE SEVERITY EMERGENCY 73665 [facility] 4 4 HOSPITAL DEPARTMEN T VISIT MODERATE SEVERITY HOSPITAL [facility] - 4 4 HOSPITAL OUTPATIEN T Inpatient IMP Alfredo [place] ([place]) 3 21:00 3 20:20 [facility] Brett OFFICE 04873 ANNEMARIE FLANAGAN CONSULTAT 1 1 ION NEW/ESTAB PATIENT 80 MIN [facility] ALFREDO - 1 1 [facility] INPATIENT [facility] - 1 1 [facility] INPATIENT [facility] EMERGENCY 86117 KATIE ALBRIGHT DEPT 1 1 EMERGENCY VISIT SERVICES HIGH SEVERITY& THREAT [facility] ALFR[facility] - 1 1 [facility] INPATIENT [facility] OFFICE 22588 PRADEEP FERNÁNDEZ OUTPATIEN 1 1 JOSE RAMON JOSE RAMON T NEW 10 MINUTES
--- OUTSIDE RECORDS SUMMARY | 2017-07-08 04:53 | External Medical Summary Rpt ---
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 Role Phone ANIBAL ALMEIDA, ANIBAL [...] [facility], Unavailable Unavailable DEPT FOR SOCIAL [facility] [place] [facility] [place] [facility] Un[facility], [facility] [place] JOSE RAMON, [place] Unavailable Unavailable JOSE RAMON CHIARA QAMAR, CHIARA Unavailable Unavailable QAMAR ZULETA JOSE RAMONSONG JOSE RAMON Unavailable Unavailable JR MARLY MENDOZA, Unavailable Unavailable JR MARLY MENDOZA [facility] Unavailable Unavailable INC, [facility] Unavailable Unavailable Hospital, [facility] FERNÁNDEZ JOSE RAMON, Unavailable Unavailable FERNÁNDEZ JOSE RAMON FERN[facility] JOSE RAMON, Unavailable Unavailable FERN[facility] JOSE RAMON [facility], [facility], Unavailable Unavailable [facility], Unavailable Unavailable [facility], Unavailable Unavailable [facility], Un[facility]available [facility], [facility] SHARPE MASHA, SHARPE MASHA Unavailable Unavailable SHARPE MASHA, SHARPE MASHA Unavailable Unavailable [facility] Unavailable Unavailable [id number] [address] [id number], [facility] [id number] # [id number] [facility] ALEKSANDR, Unavailable Unavailable [facility] ALEKSAN[facility] ALEKSAN[facility], Unavailable Unavailable [facility] ALE[facility] SCIFRES ANG, SCIFRES Unavailable Unavailable ANG SCIFRES ANG, SCIFRES Unavailable Unavailable ANG SOTINGEANU, Unavailable [facility]available [facility] Unavailable Unavailable [facility], [facility] # Unavailable Unavailable [id number], [facility] # [id number] Purpose Continuity of Care Document - 05-29-2011 [...] & COLITIS UNS R112 NAUSEA WITH 09-20-2016 [place] [facility] UNSPECIFIED IMAGING ASS Z720 TOBACCO USE 09-20-2016 [facility] 20584 INTESTINAL 06-06-2015 [facility] DUE CLOSTRIDIUM DIFFICILE 4019 UNSPECIFIED 06-06-2015 [facility]SSENTIAL [facility] HYPERTENSIO N 08899 OTHER 06-06-2015 [facility] TENOSYNOVIT [facility] IS OF HAND AND WRIST 34888 OTHER 05-31-2015 [place] DISEASES OF MEDICAL LUNG NOT IMAGING ASS ELSEWHERE CLASSIFIED 45878 OTHER 05-31-2015 [place] SPECIFIED [facility]ICAL DISORDER OF IMAGING ASS INTESTINES 08366 ABDOMINAL 05-31-2015 [place] PAIN, MEDICAL UNSPECIFIED IMAGING ASS SITE 13537 NAUSEA WITH 05-28-2015 [facility] 7873 FLATULENCE 05-28-2015 [place] ERUCTATION [facility] GAS [facility] PAIN V5882 ENCOUNTER 05-28-2015 [place] FITTING&ADJ [facility]ICAL IM[facility]ING ASS NON-[place]ASCUL[place] CATHE[place] 06143 LEUKOCYTOSI 05-27-2015 [facility] UNSPECIFIED PLL[facility] 5920 CALCULUS OF 05-27-2015 [facility] 5932 ACQUIRED 05-27-2015 [place] CYST OF [facility]ICAL KIDNEY IM[facility] 85547 DIARRHEA 05-27-2015 [facility] V154 PERS HX 03-29-2015 [facility] AL TRAUMA PRS [facility] 41538 NUCLEAR 01-10-2015 [facility] SCLEROS[facility] 3669 UNSPECIFIED 01-10-2015 [facility] CATARACT [facility] 00415 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 3688 OTHER 12-06-2014 [facility] SPECIFIED [facility] VISUAL DISTURBANCE S 45905 DERMATOCHAL 12-06-2014 [facility] ASIS [facility] 3674 PRESBYOPIA 10-21-2014 [facility] ANG 3829 UNSPECIFIED 08-14-2014 [facility] MEDIA 06108 UNSPECIFIED 08-11-2014 [facility] OTITIS PHYS EXTERNA 4139 OTHER AND 08-11-2014 [facility] UNSPECIFIED [facility] ANGINA INC PECTORIS V148 PERSONAL 08-11-2014 [facility] HISTORY [facility] ALLERGY OTH INC SPEC MEDICINAL AGTS 7840 HEADACHE 07-11-2014 [facility] 5559 REGIONAL 09-09-2011 [facility] ENTERITIS ALEKSANDR OF UNSPECIFIED SITE 51842 NAUSEA 09-09-2011 [facility]ICAL [facility] 62823 ABDOMINAL 09-09-2011 [facility] PAIN, ALEKSANDR GENERALIZED 7934 NONSPECIFIC 09-09-2011 SHAR[facility] MASHA ABN FINDING RAD & OTH EXAM GI TRACT 7936 NONSPEC ABN 09-09-2011 [place] FINDNG RAD MEDICAL & OTH EXAM IMAGING ASS ABDOMINAL AREA 5589 OTH&UNSPEC 07-20-2011 [facility] NONINFECTIO [facility] US INC GASTROENTER ITIS&COLITI S 32037 OTHER 07-20-2011 [facility] FUNCTIONAL [facility] DISORDERS INC OF INTESTINE 5609 UNSPECIFIED 07-19-2011 [facility] INTESTINAL [facility] OBSTRUCTION 5601 PARALYTIC 07-12-2011 [facility] ILEUS [facility] 86193 DENTAL 06-05-2011 [facility] CARIES JOSE RAMON EXTENDING INTO PULP 5258 OTHER SPEC 06-05-2011 [facility] DISORDERS JOSE RAMON TEETH&SUPPO RTING STRUCTURES 560.9 Small bowel [facility] Allergies, Adverse Reactions, Alerts Type Drug [...] 00 7- 1- 00 00 IC ve [place] 98 20 20 41 [place] 10 17 [...] 00 0- 0- 00 00 IC ve [place] 98 20 20 41 [place] 10 17 [...] NO 00 1- 5- 00 IC ve [place] 51 20 20 41 [place] 50 17 [...] NO 00 0- 7- 00 IC ve [place] 51 20 20 41 [place] 50 17 [...] 00 1- 0- 00 00 IC ve [place] 51 20 20 41 [place] 50 17 [...] 01 02 20 10 00 CL Ac [place] 57 -1 -1 .0 00 IN ti [...] 00 7- 0- 00 00 IC ve [place] 51 20 20 41 [place] 50 16 [...] TH 74 -0 YL 60 3- Lo [place] 00 20 ng ED 10 13 er NI 6 SO Ac LO ti NE ve 4 MG TA BL ET ME 59 03 0 No TH 74 -0 YL 60 2- Lo [place] 00 20 ng ED 10 13 er [...] ti ML ve Sy ri ng e [place] 00 03 2 No OM 64 -0 ET 11 1- Lo WELCH 49 20 ng ZI 53 13 er NE 5 Ac 25 ti ve MG /M L AM PU L [place] 68 09 09 0 12 2 WA [...] 34 7- 7- 00 34 ER ve [place] 59 20 20 AI SO ED 31 [...] 11 CE 5 PH KE TA AR [place] MA N NO CY C PH N [...] Procedure DOS Code Location Performer Comment IV [phone] 70084 [facility] INFUSION 6 [facility] THERAPY/P INC INC ROPHYLAXI S /DX 1ST TO 1 HR THERAPEUT 87191 [facility] IC 6 [facility] INJECTION INC [place] [address] [facility] INFUSION 6 [facility] THER INC INC PROPH ADDL SEQUENTIA L TO 1 [place] [address] [facility] INFUSION 6 [facility] THERAPY INC INC PROPHYLAX IS/DX EA HOUR COMPREHEN 72643 [facility] SIVE 6 [facility] METABOLIC INC INC PANEL DRUG TST G0477 [facility] PRESUMP;C 6 [facility] PBL BEING INC [place] [address] [facility] AMYLASE 6 [facility] [place] [address] [facility] ABDOMEN & 6 MEDICAL PELVIS IMAGING W/O ASS CONTRAST MATERIAL URNLS DIP 96799 [facility] 6 [facility] STICK/TAB INC INC LET REAGENT AUTO MICROSCOP Y BLOOD 62469 [facility] COUNT 6 [facility] COMPLETE INC INC AUTO&[place] [address] [facility] LIPASE 6 [facility] INC INC CULTURE 43176 [facility] BACTERIAL 6 [facility] INC INC QUANTTATI VE COLONY COUNT URINE RADEX ABD 95456 [place] ANJALI COMPL 5 MEDICAL JONATHAN AQT ABD IMAGING W/S/E/D ASS VIEWS 1 VIEW CH RADIOLOGI 49723 [facility] C 5 MEDICAL ELLE EXAMINATI IMAGING ON CHEST ASS SINGLE VIEW FRONTAL RADEX ABD 43602 [facility] COMPL 5 MEDICAL ELLE AQT ABD IMAGING W/S/E/D [place] V[place] [address] [place] [address] [facility] ABDOMEN & 5 MEDICAL ELLE PELVIS IMAGING W/O ASS CONTRAST MATERIAL POSTERIOR V2632 [facility] CHAMBER 5 [facility] H[facility] INTRAOCUL INC INC AR LENS CATARACT 10634 [facility] REMOVAL 5 [place] INSERTION OF LENS OPH BMTRY 86296 [facility] US 5 [place] ECHOGRAPY A-SCAN IO LENS PWR BOBBY OPHTH 75261 [facility] MEDICAL 5 ANG ANG XM&EVAL COMPRE NEW PT 1/> VST THERAPEUT 17924 [facility] VILLAVICENCIO IC 4 [facility] PROPHYLAC TIC/DX INJECTION SUBQ/IM INJECTION J2550 MAYE MENDOZA, 4 [facility] JR MARLY PROMETHAZ INE HCL UP TO 50 MG INJECTION J1885 MAYE VILLAVICENCIO [address] [place] [address] KETOROLAC TROMETHAM INE PER 15 MG THERAPEUT 25814 [facility] IC 4 [facility] PROPHYLAC INC INC TIC/DX INJECTION SUBQ/IM UNCLASSIF J3490 HINDUISMVELASQUEZ VILLAVICENCIO IED DRUGS [address] [facility] [address] [facility] 1 ALEKSANDR ALEKSANDR DAY MANAGEMEN T 30 MIN/< SBSQ 17051 [facility] 1 ALEKSANDR ALEKSANDR CARE/DAY 15 MINUTES INITIAL 61016 [facility] 1 ALEKSANDR ALEKSANDR CARE/DAY 70 MINUTES RADEX ABD 38609 [place] ANJALI COMPL 1 MEDICAL JONATHAN AQT ABD IMAGING W/S/E/D ASS VIEWS 1 VIEW OBSERVATI 11554 C JANNETTE GUTIERREZ ON CARE 1 [facility] ALEKSANDR DISCHARGE [facility] MANAGEMEN T INITIAL 54080 C JANNETTE GUTIERREZ OBSERVATI 1 MATT BRANDON ON PSC CARE/DAY 30 MINUTES INITIAL 38404 C JANNETTE GUTIERREZ OBSERVATI 1 MATT BRANDON ON PSC CARE/DAY 50 MINUTES RADEX ABD 84928 [place] ANJALI COMPL 1 MEDICAL JONATHAN AQT ABD IMAGING W/S/E/D ASS VIEWS 1 VIEW CH RADEX ABD 41234 [place] ANJALI COMPL 1 MEDICAL JONATHAN AQT ABD IMAGING W/S/E/D ASS VIEWS 1 VIEW CH 3D 60036 [place] ANJALI RENDERING 1 MEDICAL JONATHAN IMAGING W/INTERP& [place] [address] [place] ANJALI ABDOMEN & 1 MEDICAL JONATHAN PELVIS IMAGING W/CONTRAS ASS T MATERIAL ECG 02297 [facility] ZION ROUTINE 1 [facility] W/LEAST P 12 LDS I[facility] ONLY HOSP[facility] 90153 [facility] DISCHARGE 1 MINNIEJOSELIN [facility] DONOVAN CORRIGAN MANAGEMEN T 30 MIN/< SBSQ 48991 [facility] 1 MINNIEJOSELIN [facility] CARE/DAY PSC 15 MINUTES RADEX 69787 [facility] ANJALI ABDOMEN 1 MEDICAL JONATHAN COMPL IMAGING W/DCBTS&/ ASS ERC VIEWS SBSQ 30829 [facility] 1 MINNIEJOSELIN HARTMANJOSELIN CARE/DAY MD MEENU PECK PSC 25 MINUTES INITIAL 04821 [facility] 1 MINNIEJOSELIN [facility] CARE/DAY PSC 70 MINUTES DEEP D9220 [facility] FERNÁNDEZ SEDATION/ 1 JOSE RAMON JOSE RAMON GENERAL ANESTHESI A-1ST 30 MINUTES ALVEOLECT 64881 [facility] FERNÁNDEZ MOISÉS 1 JOSE RAMON JOSE RAMON W/CURTG OSTEITIS/ SEQUESTRE CTOMY ALVEOLOPL 86157 PRADEEP FERNÁNDEZ ASTY EACH 1 JOSE RAMON JOSE RAMON QUADRANT SPECIFY ORTHOPANT 31215 PR[facility] FERNÁNDEZ OGRAM 1 JOSE RAMON JOSE RAMON Encounters Encounter Start End Date Code Location Performer Type Date [facility] - 6 6 [facility] OUTPATIEN INC T EMERGENCY 09840 [facility] GALLAGHER DEPT 6 6 PHYSICIAN U VISIT S, [facility] HIGH SEVERITY& THREAT FUN EMERGENCY 90154 [facility] 6 6 [facility] DEPARTMEN INC T VISIT HIGH/URGE NT SEVERITY OFFICE 58445 [facility] OUTPATIEN 5 5 CARE R H T VISIT ASSOCIATE 15 S MINUTES EMERGENCY 26613 [facility] GUADARRAMA DEPT 5 5 PHYSICIAN QAMAR VISIT S, PLLC HIGH SEVERITY& THREAT [facility] - 5 5 [facility] OUTPATIEN INC T OFFICE 08235 [facility] OUTPATIEN 5 5 [place] NEW 45 MINUTES [facility]OSP[facility] - 4 4 HOSPITAL OUTPATIEN T EMERGENCY 67776 [facility] 4 4 HOSPITAL JOSE RAMON DEPARTMEN T VISIT MODERATE SEVERITY EMERGENCY 54702 [facility] 4 4 [facility] VISIT PHYS MODERATE SEVERITY HOSPITAL [facility] - 4 4 [facility] OUTPATIEN INC T EMERGENCY 12049 [facility] 4 4 [facility] DEPARTMEN INC T VISIT LOW/MODER SEVERITY [facility] - 4 4 HOSPITAL OUTPATIEN T EMERGENCY 01052 [facility] 4 4 HOSPITAL DEPARTMEN T VISIT MODERATE SEVERITY EMERGENCY 09144 [facility] 4 4 HOSPITAL DEPARTMEN T VISIT MODERATE SEVERITY [facility]OSPITAL [facility] - 4 4 HOSPITAL OUTPATIEN T Inpatient IMP Alfredo [place] ([place]) 3 21:00 3 20:20 [facility] Brett OFFICE 50794 ANNEMARIE FLANAGAN CONSULTAT 1 1 ION NEW/ESTAB PATIENT 80 MIN [facility] - 1 1 [facility] INPATIENT [facility] - 1 1 [facility] INPATIENT [facility] EMERGENCY 89570 KATIE ALBRIGHT DEPT 1 1 EMERGENCY VISIT SERVICES HIGH SEVERITY& THREAT [facility] - 1 1 [facility] INPATIENT [facility] OFFICE 38827 PRADEEP FERNÁNDEZ OUTPATIEN 1 1 JOSE RAMON JOSE RAMON T NEW 10 MINUTES
--- OUTSIDE RECORDS SUMMARY | 2017-07-08 04:55 | External Medical Summary Rpt ---
Demographics Preferred Language Kiswahili Marital Status Unknown Anglican Affiliation Unknown Race Unknown Ethnic Group Unknown Author Author ALICE Address Unknown Phone Immunization No patient found.
--- OUTSIDE RECORDS SUMMARY | 2017-07-08 04:55 | External Medical Summary Rpt ---
Author Author , ALICE Organization LAURELMARY ELLEN Address Unknown Phone [email or web address] Care Team Providers Care Cell Biology Scientist Name Role Phone ANIBAL ALMEIDA, ANIBAL Unavailable Unavailable [facility], Unavailable Unavailable [facility], Unavailable Unavailable [facility] Pau GUTIERREZ MD Unavailable Unavailable [facility], C JANNETTE GUTIERREZ MD PSC ANJALI, ANJALI Unavailable Unavailable ANJALI JONTAHAN, Unavailable Unavailable ANJALI JONATHAN [facility], Unavailable Unavailable [facility], Unavailable Unavailable [facility] [place]available [place]available [place], [facility] [place] [facility] Unavailable Unavailable [facility], [facility] [place] JOSE RAMON, [place] Unavailable Unavailable JOSE RAMON CHIARA QAMAR, CHIARA Unavailable Unavailable QAMAR ZUELTA JOSE RAMON, ZULETA JOSE RAMON Unavailable Unavailable JR MARLY MENDOZA, Unavailable Unavailable JR MARLY MENDOZA [facility] Un[facility] Unavailable [facility], [facility] FERNÁNDEZ JOSE RAMON, Unavailable Unavailable FERNÁNDEZ JOSE RAMON FERNÁNDEZ JOSE RAMON, Unavailable Unavailable FERNÁNDEZ JOSE RAMON [facility] Un[facility]available [facility], [facility] DA ANAYA, Unavailable Unavailable DA ANAYA [facility], Unavailable Unavailable [facility] Olinda Ma, Unavailable Unavailable [facility], Unavailable Unavailable PLLC, [facility] SHARPE MASHA, SHARPE MASHA Unavailable Unavailable SHARPE MASHA, SHARPE MASHA Unavailable Unavailable [facility] Unavailable Unavailable [id number] # [id number], [facility] [id number] # [id number] SCHULSTAD ALEKSANDR, Unavailable Unavailable [facility] ALEKSANDR [facility] ALEKSANDR, Unavailable Unavailable [facility] ALEKSANDR SCIFRES ANG, SCIFRES Unavailable Unavailable ANG SCIFRES ANG, SCIFRES Unavailable Unavailable ANG SOTINGEANU, Unavailable Unavailable [facility] # Unavailable Unavailable [id number], [facility] # [id number] Purpose Continuity of Care Document - 05-29-2011 [...] & COLITIS UNS R112 NAUSEA WITH 09-20-2016 [facility] UNSPECIFIED IMAGING ASS Z720 TOBACCO USE 09-20-2016 [facility] 08375 INTESTINAL 06-06-2015 [facility] DUE CLOSTRIDIUM DIFFICILE 4019 UNSPECIFIED 06-06-2015 [facility] HYPERTENSIO N 40030 OTHER 06-06-2015 [facility] TENOSYNOVIT ASSOCIATES IS OF HAND AND WRIST 58604 OTHER 05-31-2015 [facility] DISEASES OF MEDICAL LUNG NOT IMAGING ASS ELSEWHERE CLASSIFIED 89243 OTHER 05-31-2015 [facility] SPECIFIED [facility]ICAL DISORDER OF IMAGING ASS INTESTINES 73836 ABDOMINAL 05-31-2015 [facility] PAIN, MEDICAL UNSPECIFIED IMAGING ASS SITE 65855 NAUSEA WITH 05-28-2015 [facility] 7873 FLATULENCE 05-28-2015 [facility] ERUCTATION [facility] GAS [facility] PAIN V5882 ENCOUNTER 05-28-2015 [facility] FITTING&ADJ MEDICAL IMAGING ASS NON-VASCULA [place] CATHE[place] NEC 45594 LEUKOCYTOSI 05-27-2015 [facility] UNSPECIFIED PLLC 5920 CALCULUS OF 05-27-2015 [facility] 5932 ACQUIRED 05-27-2015 [facility] CYST OF MEDICAL [facility]NEY [facility]ING [facility] 49777 DIARRHEA 05-27-2015 [facility] V154 PERS HX 03-29-2015 [facility]CHOLOGIC PUBLIC [facility] AL TRAUMA PRS [facility] 49722 NUCLEAR 01-10-2015 [facility] SCLEROSIS [facility] 3669 UNSPECIFIED 01-10-2015 [facility]ACT [facility] 21640 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 3688 OTHER 12-06-2014 [facility] SPECIFIED [facility] VISUAL DISTURBANCE S 50270 DERMATOCHAL 12-06-2014 [facility] ASIS [facility] 3674 PRESBYOPIA 10-21-2014 SCIFRES ANG 3829 UNSPECIFIED 08-14-2014 [facility] MEDIA 09361 UNSPECIFIED 08-11-2014 [facility] INF[facility] EMERGENCY OTITIS PHYS EXTERNA 4139 OTHER AND 08-11-2014 [facility] UNSPECIFIED [facility] ANGINA INC PECTORIS V148 PERSONAL 08-11-2014 [facility] HISTORY [facility] ALLERGY OTH INC SPEC MEDICINAL AGTS 7840 HEADACHE 07-11-2014 [facility] 5559 REGIONAL 09-09-2011 [facility] ENTERITIS ALEKSANDR OF UNSPECIFIED SITE 83358 NAUSEA 09-09-2011 [facility] 85906 ABDOMINAL 09-09-2011 [facility] PAIN, ALEKSANDR GENERALIZED 7934 NONSPECIFIC 09-09-2011 SHARPE MASHA ABN FINDING RAD & OTH EXAM GI TRACT 7936 NONSPEC ABN 09-09-2011 [facility] FINDNG RAD MEDICAL & OTH EXAM IMAGING ASS ABDOMINAL AREA 5589 OTH&UNSPEC 07-20-2011 [facility] NONINFECTIO [facility] US INC GASTROENTER ITIS&COLITI S 67283 OTHER 07-20-2011 [facility] FUNCTIONAL [facility] DISORDERS INC OF INTESTINE 5609 UNSPECIFIED 07-19-2011 [facility] INTESTINAL [facility] OBSTRUCTION 5601 PARALYTIC 07-12-2011 [facility] ILEUS [facility] 06694 DENTAL 06-05-2011 FERNÁNDEZ CARIES JOSE RAMON EXTENDING [...] 00 7- 1- 00 00 IC ve WY 98 20 20 41 [place] 10 17 [...] 00 0- 0- 00 00 IC ve WY 98 20 20 41 IL 10 17 [...] 00 1- 5- 00 00 IC ve WY 51 20 20 41 IL 50 17 [...] 00 0- 7- 00 00 IC ve WY 51 20 20 41 IL 50 17 [...] 00 1- 0- 00 00 IC ve WY 51 20 20 41 IL 50 17 [...] 01 02 20 10 00 CL Ac WY 57 -1 -1 .0 00 IN ti [...] 00 7- 0- 00 00 IC ve WY 51 20 20 41 IL 50 16 [...] CY LA TE 5 MG TA B WY 68 09 09 0 12 2 WA [...] 34 7- 7- 00 34 ER ve WY 59 20 20 AI SO ED 31 [...] 11 CE 5 PH KE TA AR AK MA N NO CY C PH N [...] Procedure [place] [address] [facility] INFUSION 6 [facility] THERAPY/P INC INC ROPHYLAXI S /DX 1ST TO 1 HR THERAPEUT 14163 [facility] FUENETS IC 6 [facility] INJECTION [place] [address] [facility] INFUSION 6 [facility] THERAPY INC [place] [address] [facility] INFUSION 6 [facility] THER INC INC PROPH ADDL SEQUENTIA L TO [address] [place] [address] [facility] AMYLASE 6 [facility] INC INC COMPREHEN 79426 [facility] SIVE 6 [facility] H[facility] METABOLIC INC INC PANEL DRUG TST G0477 [facility] PRESUMP;C 6 [facility] H[facility] PBL BEING INC INC READ DC OPT OBV ONLY BLOOD 21628 [facility] COUNT 6 [facility] COMPLETE INC INC AUTO&AUTO DIFRNTL WBC URNLS DIP 28724 [facility] 6 [facility] STICK/TAB INC INC LET REAGENT AUTO MICROSCOP Y CULTURE 96338 [facility] BACTERIAL 6 [facility] INC [place] [address] [facility] ABDOMEN & 6 MEDICAL PELVIS IMAGING W/[place] [address] [facility] LIPASE 6 [facility]OS[facility] INC INC RADEX ABD 33221 [facility] COMPL 5 MEDICAL JONATHAN AQT ABD IMAGING W/S/E/D ASS VIEWS 1 VIEW CH RADIOLOGI 80538 PSYCHIATRIC C 5 MEDICAL ELLE EXAMINATI IMAGING ON CHEST ASS SINGLE VIEW FRONTAL RADEX ABD 44546 PSYCHIATRIC COMPL 5 MEDICAL ELLE AQT ABD IMAGING W/S/E/D [place] [address] [place] [address] PSYCHIATRIC ABDOMEN & 5 MEDICAL ELLE PELVIS IMAGING W/O ASS CONTRAST MATERIAL CATARACT 26922 [facility] REMOVAL 5 [place] INSERTION OF LENS POSTERIOR V2632 [facility] CHAMBER 5 [facility] INTRAOCUL INC INC AR LENS OPH BMTRY 08050 [facility] US 5 [place] ECHOGRAPY A-SCAN IO LENS PWR BOBBY OPHTH 99986 IP [facility] 5 ANG ANG XM&EVAL COMPRE NEW PT 1/> VST THERAPEUT 52490 [facility] IC 4 [facility] PROPHYLAC TIC/DX INJECTION SUBQ/IM INJECTION J1885 [facility] [address] [place] [address] KETOROLAC TROMETHAM INE PER 15 MG INJECTION J2550 MAYE MENDOZA, [address] [place] [address] MARLY PROMETHAZ INE HCL UP TO 50 MG THERAPEUT 43969 [facility] IC 4 [facility] PROPHYLAC INC INC TIC/DX INJECTION SUBQ/IM UNCLASSIF J3490 [facility] IED DRU[facility] [address] [place] [address] [facility] DISCHARGE 1 ALEKSANDR ALEKSANDR DAY MANAGEMEN T 30 MIN/< SBSQ 59347 [facility] 1 ALEKSANDR ALEKSANDR CARE/DAY 15 MINUTES INITIAL 90257 [facility] 1 ALEKSANDR ALEKSANDR CARE/DAY 70 MINUTES RADEX ABD 26882 [facility] COMPL 1 MEDICAL JONATHAN AQT ABD IMAGING W/S/E/D ASS VIEWS 1 VIEW OBSERVATI 81542 C JANNETTE GUTIERREZ ON CARE 1 MATT BRANDON DISCHARGE [facility] MANAGEMEN T INITIAL 86107 C JANNETTE GUTIERREZ OBSERVATI 1 MATT BRANDON ON PSC CARE/DAY 30 MINUTES INITIAL 58812 C JANNETTE GUTIERREZ OBSERVATI 1 MATT BRANDON ON PSC CARE/DAY 50 MINUTES RADEX ABD 33755 [facility] COMPL 1 MEDICAL JONATHAN AQT ABD IMAGING W/S/E/D ASS VIEWS 1 VIEW RADEX ABD 22705 [facility] COMPL 1 MEDICAL JONATHAN AQT ABD IMAGING W/S/E/D ASS VIEWS 1 VIEW CH 3D 21380 SACHA ANJALI RENDERING 1 MEDICAL JONATHAN IMAGING W/INTERP& [place] [address] SACHA ANJALI ABDOMEN & 1 MEDICAL JONATHAN PELVIS IMAGING W/CONTRAS ASS T MATERIAL ECG 16847 [facility] DA ROUTINE 1 [facility] W/LEAST P 12 LDS I&[facility] ONLY [facility] 75229 C [facility] DISCHARGE 1 MINNIEJOSELIN [facility] DONOVAN PECK [facility] MANAGEMEN T 30 MIN/< SBSQ [address] [facility] 1 MINNIEJOSELIN [facility]/DAY [facility] 15 MINUTES RADEX 35695 SACHA ANJALI ABDOMEN 1 MEDICAL JONATHAN COMPL IMAGING W/DCBTS&/ ASS ERC VIEWS SBSQ 68682 [facility]SELIN [facility] MD MEENU PECK [facility] 25 MINUTES INITIAL [address] 1 MINNIEJOSELIN [facility] TJ/DAY [facility] 70 MINUTES DEEP D9220 PR[facility] FERNÁNDEZ SEDATION/ 1 JOSE RAMON JOSE RAMON GENERAL ANESTHESI A-1ST 30 MINUTES ALVEOLECT 84634 [facility] FERNÁNDEZ MOISÉS 1 JOSE RAMON JOSE RAMON W/CURTG OSTEITIS/ SEQUESTRE CTOMY ALVEOLOPL 29956 PRADEEP FERNÁNDEZ ASTY EACH 1 JOSE RAMON JOSE RAMON QUADRANT SPECIFY ORTHOPANT 23840 PRADEEP FERNÁNDEZ OGRAM 1 JOSE RAMON JOSE RAMON Encounters Encounter Start End Date Code Location Performer Type Date EMERGENCY 47433 [facility] 6 6 [facility] DEPARTMEN INC T VISIT HIGH/URGE NT SEVERITY EMERGENCY 74985 [facility] GALLAGHER DEPT 6 6 PHYSICIAN U VISIT S, [facility] HIGH SEVERITY& THREAT [facility] - 6 6 [facility] OUTPATIEN INC T OFFICE 84705 [facility] OUTPATIEN 5 5 CARE R H T VISIT ASSOCIATE 15 S MINUTES EMERGENCY 54800 [facility] GUADARRAMA DEPT 5 5 PHYSICIAN QAMAR VISIT S, [facility] HIGH SEVERITY& THREAT [facility] - 5 5 [facility] OUTPATIEN [facility] T OFFICE 66661 [facility] OUTPATIEN 5 5 [place] T NEW 45 MINUTES [facility] - 4 4 HOSPITAL OUTPATIEN EMERGENCY 96657 MAYE [facility] 4 4 [facility] MODERATE SEVERITY [facility]OSP[facility] - 4 4 [facility] OUTPATIEN [facility] EMERGENC[facility] 49440 [facility] 4 4 [facility] T VISIT LOW/MODER SEVERITY EMERGENCY 16044 [facility] CHIARA 4 4 [facility]ELIX [facility] T VISIT PHYS MODERATE SEVERITY EMERGENCY 22656 [facility] 4 4 HOSPITAL DEPARTMEN T VISIT MODERATE SEVERITY [facility] 4 4 [facility] 77952 [facility] 4 4 HOSPITAL DEPARTMEN T VISIT MODERATE SEVERITY [facility] - 4 4 [facility] - 1 1 [facility] INPATIENT INC OFFICE 53371 ANNEMARIE FLANAGAN CONSULTAT 1 1 ION NEW/ESTAB PATIENT 80 MIN [facility] - 1 1 [facility] INPATIENT [facility] EMERGENCY 41901 KATIE ALBRIGHT DEPT 1 1 EMERGENCY VISIT SERVICES HIGH SEVERITY& THREAT [facility] - 1 1 [facility] INPATIENT INC OFFICE 55531 PRADEEP FERNÁNDEZ OUTPATIEN 1 1 JOSE RAMON JOSE RAMON T NEW 10 MINUTES
--- OUTSIDE RECORDS SUMMARY | 2017-07-08 04:55 | External Medical Summary Rpt ---
Author Author , ALICE Organization LAURELMARY ELLEN Address Unknown Phone [email or web address] Care Team Providers Care Special Events Assistant Name Role Phone ANIBAL ALMEIDA, ANIBAL Unavailable [...] [facility] [place]available [place], [facility] [place] [facility] Unavailable [...] RAMON, Unavailable Unavailable FERNÁNDEZ JOSE RAMON [facility] Un[facility] Unavailable [facility], [facility] DA ANAYA, Unavailable Unavailable DA ANAYA [facility], Unavailable Unavailable [facility] Olinda Ma, Unavailable Unavailable [facility], Unavailable Unavailable PLLC, [facility] SHARPE MASHA, SHARPE MASHA Unavailable Unavailable SHARPE MASHA, SHARPE MASHA Unavailable Unavailable [facility] Unavailable Unavailable [id number] # [id number], [facility] [address] # 0393 SCHULSTAD ALEKSANDR, Unavailable Unavailable SCHULST[facility] ALEKSANDR [facility] ALEKSANDR, Unavailable Unavailable [facility] ALEKSANDR SCIFRES ANG, SCIFRES Unavailable Unavailable ANG SCIFRES ANG, SCIFRES Unavailable Unavailable ANG SOTINGEANU, Unavailable Unavailable [facility] # Unavailable Unavailable [id number], [facility] # [id number] Purpose Continuity of Care Document - 05-29-2011 [...] COLITIS UNS R112 NAUSEA WITH 09-20-2016 [facility] VOMIT[facility] MEDICAL UNSPECIFIED IMAGING ASS Z720 TOBACCO USE 09-20-2016 [facility] 28429 INTESTINAL 06-06-2015 [facility] DUE CLOSTRIDIUM DIFFICILE 4019 UNSPECIFIED 06-06-2015 [facility] HYPERTENSIO N 24201 OTHER 06-06-2015 [facility] TENOSYNOVIT ASSOCIATES IS OF HAND AND WRIST 18393 OTHER 05-31-2015 [facility] DISEASES OF MEDICAL LUNG NOT IMAGING ASS ELSEWHERE CLASSIFIED 84035 OTHER 05-31-2015 [facility] SPECIFIED MEDICAL DISORDER OF IMAGING ASS INTESTINES 50303 ABDOMINAL 05-31-2015 [facility] PAIN, MEDICAL UNSPECIFIED IMAGING ASS SITE 57678 NAUSEA WITH 05-28-2015 [facility] VOM[facility] ASS 7873 FLATULENCE 05-28-2015 [facility] ERUCTATION MEDICAL AND GAS IMAGING ASS PAIN V5882 ENCOUNTER 05-28-2015 [facility] FITTING&ADJ MEDICAL IMAGING ASS NON-VASCULA [place] CATHE[place] NEC 82002 LEUKOCYTOSI 05-27-2015 [facility] UNSPECIFIED PLLC 5920 CALCULUS OF 05-27-2015 [facility]NEY [facility] 5932 ACQUIRED 05-27-2015 [facility] CYST OF MEDICAL KIDNEY IMAGING ASS 19604 DIARRHEA 05-27-2015 [facility] V154 PERS HX 03-29-2015 DEPT FOR PSYCHOLOGIC PUBLIC HLTH AL TRAUMA PRS [facility] 46974 NUCLEAR 01-10-2015 [facility] S[facility]ER[facility] 3669 UNSPECIFIED 01-10-2015 [facility] CATARACT [facility] INC 68018 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 3688 OTHER 12-06-2014 [facility] SPECIFIED [facility] VISUAL DISTURBANCE S 35410 DERMATOCHAL 12-06-2014 [facility] ASIS [facility] 3674 PRESBYOPIA 10-21-2014 SCIFRES ANG 3829 UNSPECIFIED 08-14-2014 [facility] MEDIA 88241 UNSPECIFIED 08-11-2014 [facility] INFECTIVE N EMERGENCY OTITIS PHYS EXTERNA 4139 OTHER AND 08-11-2014 [facility] UNSPECIFIED [facility] ANGINA INC PECTORIS V148 PERSONAL 08-11-2014 [facility] HISTORY [facility] ALLERGY OTH INC SPEC MEDICINAL AGTS 7840 HEADACHE 07-11-2014 [facility] 5559 REGIONAL 09-09-2011 [facility] ENTERITIS ALEKSANDR OF UNSPECIFIED SITE 68691 NAUSEA 09-09-2011 [facility] ALONE [facility] 48756 ABDOMINAL 09-09-2011 [facility] PAIN, ALEKSANDR GENERALIZED 7934 NONSPECIFIC 09-09-2011 SHARPE MASHA ABN FINDING RAD & OTH EXAM GI TRACT 7936 NONSPEC ABN 09-09-2011 [facility] FINDNG RAD MEDICAL & OTH EXAM IMAGING ASS ABDOMINAL AREA 5589 OTH&UNSPEC 07-20-2011 [facility] NONINFECTIO [facility] US INC GASTROENTER ITIS&COLITI S 18816 OTHER 07-20-2011 [facility] FUNCTIONAL [facility] DISORDERS INC OF INTESTINE 5609 UNSPECIFIED 07-19-2011 [facility] INTESTINAL [facility]ICAL IMAGING ASS OBSTRUCTION 5601 PARALYTIC 07-12-2011 [facility] ILEUS [facility] 39537 DENTAL 06-05-2011 FERNÁNDEZ CARIES JOSE RAMON EXTENDING [...] 00 7- 1- 00 00 IC ve MD 98 20 20 41 [place] 10 17 [...] 00 0- 0- 00 00 IC ve MD 98 20 20 41 [place] 10 17 [...] 00 1- 5- 00 00 IC ve MD 51 20 20 41 IL 50 17 [...] 00 0- 7- 00 00 IC ve MD 51 20 20 41 IL 50 17 [...] 00 1- 0- 00 00 IC ve MD 51 20 20 41 IL 50 17 [...] 01 02 20 10 00 CL Ac MD 57 -1 -1 .0 00 IN ti [...] 00 7- 0- 00 00 IC ve MD 51 20 20 41 IL 50 16 [...] CY LA TE 5 MG TA B MD 68 09 09 0 12 2 WA [...] 34 7- 7- 00 34 ER ve MD 59 20 20 AI SO ED 31 [...] Procedure [place] [address] [facility] INFUSION 6 [facility] THERAPY/P INC INC ROPHYLAXI S /DX 1ST TO 1 HR THERAPEUT 03533 [facility] IC 6 [facility] INJECTION [place] [address] [facility] INFUSION 6 [facility] THERAPY INC [place] [address] [facility] INFUSION 6 [facility] THER INC INC PROPH ADDL SEQUENTIA L TO 1 [place] [address] [facility] AMYLASE 6 [facility] INC INC COMPREHEN 92029 AL[facility] SIVE 6 [facility] METABOLIC INC INC PANEL DRUG TST G0477 [facility] PRESUMP;C 6 [facility] PBL BEING INC INC READ DC OPT OBV ONLY BLOOD 40748 [facility] COUNT 6 [facility] COMPLETE INC INC AUTO&AUTO DIFRNTL WBC URNLS DIP 24453 [facility] FUENTES 6 [facility] STICK/TAB INC INC LET REAGENT AUTO MICROSCOP Y CULTURE 52216 [facility] BACTERIAL 6 [facility] INC INC [place] [address] [facility] ABDOMEN & 6 MEDICAL PELVIS IMAGING W/[place] [address] [facility] LIPASE 6 [facility] INC INC RADEX ABD 97150 [facility] COMPL 5 MEDICAL JONATHAN AQT ABD IMAGING W/S/E/D ASS VIEWS 1 VIEW CH RADIOLOGI 37905 [facility] C 5 MEDICAL ELLE EXAMINATI IMAGING ON CHEST ASS SINGLE VIEW FRONTAL RADEX ABD 19159 [facility] COMPL 5 MEDICAL ELLE AQT ABD IMAGING W/S/E/D ASS VIE[place] [address] [place] [address] [facility] ABDOMEN & 5 MEDICAL ELLE PELVIS IMAGING W/O ASS CONTRAST MATERIAL CATARACT 65375 [facility] REMOVAL 5 [place] INSERTION OF LENS POSTERIOR V2632 [facility] CHAMBER 5 [facility] INTRAOCUL INC INC AR LENS OPH BMTRY 75122 [facility] US 5 [place] ECHOGRAPY A-SCAN IO LENS PWR BOBBY OPHTH 90670 [facility] 5 ANG ANG XM&EVAL COMPRE NEW PT 1/> VST THERAPEUT 67185 [facility] DRUZE IC 4 [facility] PROPHYLAC TIC/DX INJECTION SUBQ/IM INJECTION J1885 DRU[facility] DRU[facility] [address] [place] [address] KETOROLAC TROMETHAM INE PER 15 MG INJECTION J2550 MAYE MENDOZA, [address] [place] [address] MARLY PROMETHAZ INE HCL UP TO 50 MG THERAPEUT 17564 [facility] IC 4 [facility] PROPHYLAC INC INC TIC/DX INJECTION SUBQ/IM UNCLASSIF J3490 [facility] DRU[facility] IED DRUGS [address] [place] [address] [facility] DISCHARGE 1 ALEKSANDR ALEKSANDR DAY MANAGEMEN T 30 MIN/< SBSQ 45610 [facility] 1 ALEKSANDR ALEKSANDR CARE/DAY 15 MINUTES INITIAL 18592 [facility] 1 ALEKSANDR ALEKSANDR CARE/DAY 70 MINUTES RADEX ABD 70994 [facility] COMPL 1 MEDICAL JONATHAN AQT ABD IMAGING W/S/E/D ASS VIEWS 1 VIEW OBSERVATI 61412 C JANNETTE GUTIERREZ ON CARE 1 MATT BRANDON DISCHARGE [facility] MANAGEMEN T INITIAL 76075 C JANNETTE GUTIERREZ OBSERVATI 1 MATT BRANDON ON PSC CARE/DAY 30 MINUTES INITIAL 94206 C JANNETTE GUTIERREZ OBSERVATI 1 MATT BRANDON ON PSC CARE/DAY 50 MINUTES RADEX ABD 23895 [facility] COMPL 1 MEDICAL JONATHAN AQT ABD IMAGING W/S/E/D ASS VIEWS 1 VIEW RADEX ABD 19888 [facility] COMPL 1 MEDICAL JONATHAN AQT ABD IMAGING W/S/E/D ASS VIEWS 1 VIEW CH 3D 09116 SACHA ANJALI RENDERING 1 MEDICAL JONATHAN IMAGING W/INTERP& [place] [address] SACHA ANJALI ABDOMEN & 1 MEDICAL JONATHAN PELVIS IMAGING W/CONTRAS ASS T MATERIAL ECG 58154 [facility] DA ROUTINE 1 [facility] W/LEAST P 12 LDS [facility] 45419 [facility] DISCHARGE 1 MINNIEJOSELIN [facility] DONOVAN PECK [facility] MANAGEMEN T 30 MIN/< SBSQ 06668 [facility] 1 MINNIEJOSELIN [facility]/DAY [facility] 15 MINUTES RADEX 63094 SACHA ANJALI ABDOMEN 1 MEDICAL JONATHAN COMPL IMAGING W/DCBTS&/ ASS ERC VIEWS SBSQ 43362 C [facility] 1 [facility]IN [facility] MD MEENU PECK [facility] 25 MINUTES INITIAL 08305 [facility] [place] [facility] TJ/DAY [facility] 70 MINUTES DEEP D9220 PRADEEP FERNÁNDEZ SEDATION/ 1 JOSE RAMON JOSE RAMON GENERAL ANESTHESI A-1ST 30 MINUTES ALVEOLECT 63252 PRADEEP FERNÁNDEZ MOISÉS 1 JOSE RAMON JOSE RAMON W/CURTG OSTEITIS/ SEQUESTRE CTOMY ALVEOLOPL 30704 PRADEEP FERNÁNDEZ ASTY EACH 1 JOSE RAMON JOSE RAMON QUADRANT SPECIFY ORTHOPANT 75151 PRADEEP FERNÁNDEZ OGRAM 1 JOSE RAMON JOSE RAMON Encounters Encounter Start End Date Code Location Performer Type Date EMERGENCY 05058 [facility] 6 6 [facility] T VISIT HIGH/URGE NT SEVERITY EMERGENCY 01937 KIAH GALLAGHER DEPT 6 6 PHYSICIAN U VISIT S, [facility] HIGH SEVERITY& THREAT [facility] ALFREDO - 6 6 [facility] OUTPATIEN INC T OFFICE 18508 [facility] OUTPATIEN 5 5 CARE R H T VISIT ASSOCIATE 15 S MINUTES EMERGENCY 86081 KIAH GUADARRAMA DEPT 5 5 PHYSICIAN QAMAR VISIT S, [facility] HIGH SEVERITY& THREAT [facility] ALFREDO - 5 5 [facility] OUTPATIEN [facility] T OFFICE 52503 [facility] OUTPATIEN 5 5 [place] NEW 45 MINUTES [facility] DRUZE - 4 4 HOSPITAL OUTPATIEN EMERGENCY 14712 MAYE [place] 4 4 [facility] MODERATE [facility]VERITY [facility] - 4 4 [facility] OUTPATIEN [facility] EMERGENCY 50103 [facility] T VISIT LOW/MODER SEVERITY EMERGENCY 32653 [facility] CHIARA 4 4 [facility] PHYS MODERATE SEVERITY EMERGENCY 03768 DRUZE 4 4 HOSPITAL DEPARTMEN T VISIT MODERATE SEVERITY [facility] DRUZE - 4 4 [facility] 63324 DRUZE 4 4 HOSPITAL DEPARTMEN T VISIT MODERATE SEVERITY [facility] - 4 4 [facility] 1 1 [facility] INPATIENT INC OFFICE 29312 ANNEMARIE FLANAGAN CONSULTAT 1 1 ION NEW/ESTAB PATIENT 80 MIN [facility]FRED[facility] - 1 1 [facility] EMERGENCY 85732 KATIE ALBRIGHT DEPT 1 1 EMERGENCY VISIT SERVICES HIGH SEVERITY& THREAT [facility] - 1 1 [facility] OFF[facility] 75541 PRADEEP FERNÁNDEZ OUTPATIEN 1 1 JOSE RAMON JOSE RAMON T NEW 10 MINUTES
--- OUTSIDE RECORDS SUMMARY | 2017-07-08 04:55 | External Medical Summary Rpt ---
Demographics Preferred Language Romansh Marital Status Unknown Pentecostalism Affiliation Unknown Race Unknown Ethnic Group Unknown Author Author ALICE Address Unknown Phone Immunization No patient found.
== END 2017-06-14 14:47 | disposition home or self-care (01) | DRG 392 ==
LOC: ER 00:20 → 2ND 03:32
PROVIDERS: Emergency Medicine
DX: K52.9 Noninfective gastroenteritis and colitis, unspecified (principal); I10 Essential (primary) hypertension; E87.6 Hypokalemia; E86.0 Dehydration; Z72.0 Tobacco use; J44.9 Chronic obstructive pulmonary disease, unspecified
CPT/HCPCS: J2405